=== PATIENT | female | born 1960 | race Caucasian/White ===

== ENCOUNTER → 2018-07-27 11:58 | Outpatient (CLI) | payer BC, SELFPAY ==
[2018-07-27 12:52] VITALS: PULSE 100; PULSE 109; PULSE 110; PULSE 112; PULSE 87; PULSE 92; PULSE 94; PULSE 96; O2SAT 84; O2SAT 87; O2SAT 88; O2SAT 89; O2SAT 91; O2SAT 92; O2SAT 93
--- NOTE | 2018-07-27 12:55 | CPS ---
Patient arrived on room air for testing. Upon being taken to exam room, spo2 was at 84% and patient had dusky lips and fingers. Oxygen was placed on patient at 2lpm with spo2 increasing to 92%. Walk testing began on 2lpm. Patient has f/u delio Grayson in office Thursday07/30/18
--- NOTE | 2018-07-29 14:59 | PCM.PSN.6M ---
PSN 6 Minute Walk Test - 6 Minute Walk Test 6 Minute Walk Test: 6 Minute Walk Test PSN:6-Minute Walk Test Start: 07/27/18 12:51 Freq: Status: Active Protocol: RESP.6MINW Document 07/27/18 12:52 [facility] (Rec: 07/27/18 12:58 [facility] [id number]) 6 Minute Walk Test Date Performed 07/27/18 Time Performed 12:00 Height 5 ft 4 in Weight: 240 lb Weight in Pounds 240.[address]: Alejandrina Augustine Assistive device used: None Pre-test Oxygen Delivery Method Room Air Pulse Ox (%) 84 Pulse Rate (60-100 beats/min) 92 Dyspnea Nickolas Scale (0-10) 3 Reported Symptoms Cyanotic Increased Work of Breathing 1st minute Oxygen Flow Rate (L/min) (L/min) 2 Oxygen Delivery Method Nasal Cannula Pulse Ox (%) 89 Pulse Rate (60-100 beats/min) 94 Dyspnea Nickolas Scale (0-10) 4 Reported Symptoms Increased Work of Breathing 2nd minute Oxygen Flow Rate (L/min) (L/min) 2 Oxygen Delivery Method Nasal Cannula Pulse Ox (%) 88 Pulse Rate (60-100 beats/min) 96 Dyspnea Nickolas Scale (0-10) 5 Number of Rests Taken 1 Reported Symptoms Increased Work of Breathing 3rd minute Oxygen Flow Rate (L/min) (L/min) 3 Oxygen Delivery Method Nasal Cannula Pulse Ox (%) 87 Pulse Rate (60-100 beats/min) 100 Dyspnea Nickolas Scale (0-10) 5 Number of Rests Taken 1 Reported Symptoms Increased Work of Breathing 4th minute Oxygen Flow Rate (L/min) (L/min) 4 Oxygen Delivery Method Nasal Cannula Pulse Ox (%) 91 Pulse Rate (60-100 beats/min) 109 H Dyspnea Nickolas Scale (0-10) 6 Number of Rests Taken 1 Reported Symptoms Increased Work of Breathing 5th minute Oxygen Flow Rate (L/min) (L/min) 4 Oxygen Delivery Method Nasal Cannula Pulse Ox (%) 92 Pulse Rate (60-100 beats/min) 110 H Dyspnea Nickolas Scale (0-10) 6 Number of Rests Taken 1 Reported Symptoms Increased Work of Breathing 6th minute Oxygen Flow Rate (L/min) (L/min) 4 Oxygen Delivery Method Nasal Cannula Pulse Ox (%) 93 Pulse Rate (60-100 beats/min) 112 H Dyspnea Nickolas Scale (0-10) 6 Number of Rests Taken 1 Reported Symptoms Increased Work of Breathing Post-test Oxygen Flow Rate (L/min) (L/min) 2 Oxygen Delivery Method Nasal Cannula Pulse Ox (%) 91 Pulse Rate (60-100 beats/min) 87 Dyspnea Nickolas Scale (0-10) 3 Reported Symptoms Increased Work of Breathing Full Laps Walked 6 Partial Lap, Number of Tiles Walked 10 Total Distance Walked (ft) 364 07/27/18 12:55 Cardiopulmonary Services by Sherrie Smith Patient arrived on room air for testing. Upon being taken to exam room, spo2 was at 84% and patient had dusky lips and fingers. Oxygen was placed on patient at 2lpm with spo2 increasing to 92%. Walk testing began on 2lpm. Patient has f/u w Renuka in office Thursday07/30/18 Initialized on 07/27/18 12:55 - END OF NOTE - Interpretation Interpretation: The patient ambulated 364 feet over the course of 6 minutes beginning on room air without assistive devices or breaks. Pretesting oxygen saturation was noted to be 84% on room air. 2 L/min of oxygen was applied and the walk test proceeded. Unfortunately, the patient continued to desaturate on multiple occasions requiring an escalation in her supplemental flow rate to 4 L/min in order to maintain oxygen saturations at or above 88%. This testing indicates the presence of impaired walk distance and significant exertional oxygen desaturation. - Recommendations Recommendations: 2 L/min of supplemental oxygen should be utilized at rest and 4 L/min should be utilized with exertion.
--- OUTSIDE RECORDS SUMMARY | 2018-10-28 21:30 | XMS RPT_ITS | Clinical Summary ---
:1960 Author Organization [facility] Address [address] [place] [id number] Phone Care Team Providers Name Role Phone Kadie Benavides Unavailable Unavailable Conditions or Problems Problem Name Problem Onset Status Entry Provider Comment Standard Annotate Code Date Date Description Joint pain 32302469 Active Machelle Joint pain (SNOMED 12/04 12/[address] [place] [address]) PA-C Insomnia, 541766672 Active Machelle Insomnia chronic (SNOMED 12/04 12/[address] [place] [address]) PA-C Overactive 127455196 Active Machelle Bladder muscle bladder (SNOMED 12/04 12/04 D [place] dysfunction - CT) PA-C overactive Hiatal hernia 61780827 Active Machelle Hiatal hernia (SNOMED 12/04 12/[address] [place] [address]) PA-C GERD 235311305 Active Machelle Gastroesophageal (SNOMED 12/04 12/[address] [place] [address]) PA-C Hypertension 6760128 2982/0 Active Machelle Benign essential benign (SNOMED 12/04 12/[address] [place] [address]) PA-C Depression / 074615151 Active Machelle Mixed anxiety and anxiety (SNOMED 12/04 12/[address] [place] [address]) PA-C disorder Medications Medication Instructions Start Stop Generic Name UTC Provider Date Date CLONAZEPAM 2 MG TABS 1 tablet by CLONAZEPAM [id number] Machelle mouth at 12/04 D [place] bedtime PA-C HYDROCHLOROTHIAZIDE 1 tablet by HYDROCHLOROTHIAZIDE 40907430396 Machelle 50 MG TABS mouth daily 12/04 D [place] PA-C SOTALOL HCL 120 MG 1 tablet by SOTALOL HCL 42179645874 Machelle TABS mouth daily 12/04 D [place] PA-C ESCITALOPRAM OXALATE 1 tablet by ESCITALOPRAM OXALATE 70440110286 Machelle 20 MG TABS mouth daily 12/04 D [place] at bedtime PA-C ALPRAZOLAM 1 MG TABS 1 tablet as ALPRAZOLAM 58704814791 Machelle needed for 12/04 D [place] anxiety PA-C PANTOPRAZOLE SODIUM 2 tablets by PANTOPRAZOLE SODIUM 94973248965 Machelle 40 MG TBEC mouth daily 12/04 D [place] PA-C OXYBUTYNIN CHLORIDE 1 tablet by OXYBUTYNIN CHLORIDE 73942125573 Machelle ER 10 MG [id number] mouth daily 12/04 D [place] PA-C POTASSIUM CHLORIDE 2 tablets by POTASSIUM CHLORIDE 04566164012 Machelle ER 20 MEQ CR-TABS mouth daily 12/04 D [place] PA-C Medications Administered No information available. Allergies, Adverse Reactions, Alerts Observed no known allergies at Results Date Name Value Unit Range Flag Description Office Visit: Establish Care MEDS REVIEW Done Documentation of current medications (procedure) SMOK ADVICE yes Smoking cessation education (procedure) ORALTOBACUSE Never Tobacco smoking status NJIS SMOK STATUS Current every day smoker Tobacco use [facility] Plan of Care Type Date Detail Appointment 10:00 AM Jonathan Cummings, [address], [address], [place], [address] Referral Surgery Referral Pending order *CRP - C-Reative Protein Pending order *PAT Pending order *Sedimentation Rate (ESR) Pending order *RA Rheumatoid Factor - Quaint Procedures No information available. Vital Signs Date Name Value Unit Description BMI (Body Mass Index) 31.09 kg/m2 Body Mass Index [Ratio] Body Temperature 99.0 [degF] temperature E&M BP Diastolic 90 mm[Hg] blood pressure, diastolic - 8462-4 BP Systolic 132 mm[Hg] blood pressure, systolic - 8480-6 BSA (Body Surface Area) 1.90 body surface area Heart Rate 88 /min pulse rate E&M - 8867-4 Height 64.5 [in_us] height E&M - 8302-2 Respiratory Rate 18 /min respiratory rate E&M - 9279-1 Weight Measured 184 [lb_av] weight E&M - 3141-9
--- OUTSIDE RECORDS SUMMARY | 2018-10-28 21:30 | XMS RPT_ITS | Clinical Summary ---
:1960 Author Organization [facility] Address [address] [place] [phone] Phone Care Team Providers Name Role Phone Kadie Benavides Unavailable Unavailable Conditions or Problems Problem Name Problem Onset Status Entry Provider Comment Standard Annotate Code Date Date Description Joint pain 36161843 Active Machelle Joint pain (SNOMED 12/04 12/[address] [place] [address]) PA-C Insomnia, 691329352 Active Machelle Insomnia chronic (SNOMED 12/04 12/[address] [place] [address]) PA-C Overactive 963619414 Active Machelle Bladder muscle bladder (SNOMED 12/04 12/04 D [place] dysfunction - CT) PA-C overactive Hiatal hernia 31878937 Active Machelle Hiatal hernia (SNOMED 12/04 12/[address] [place] [address]) PA-C GERD 571756842 Active Machelle Gastroesophageal (SNOMED 12/04 12/[address] [place] [address]) PA-C Hypertension 7957664 5084/0 Active Machelle Benign essential benign (SNOMED 12/04 12/[address] [place] [address]) PA-C Depression / 884489659 Active Machelle Mixed anxiety and anxiety (SNOMED 12/04 12/[address] [place] [address]) PA-C disorder Medications Medication Instructions Start Stop Generic Name NDC Provider Date Date CLONAZEPAM 2 MG TABS 1 tablet by CLONAZEPAM [id number] Machelle mouth at 12/04 D [place] bedtime PA-C CLONAZEPAM 2 MG TABS 1 tablet by 2017/ CLONAZEPAM 94678685500 Kadie L mouth at 12/04 07/05 [place] bedtime OXYBUTYNIN CHLORIDE 1 tablet by OXYBUTYNIN CHLORIDE 29119365503 Machelle ER 10 MG [id number] mouth daily 12/04 D [place] SIN-aSndy OXYBUTYNIN CHLORIDE 1 tablet by 2016/ OXYBUTYNIN CHLORIDE 95204040631 Kadie L ER 10 MG [id number] mouth daily 12/04 02/11 [place] PANTOPRAZOLE SODIUM 2 tablets by PANTOPRAZOLE SODIUM 07452740713 Machelle 40 MG TBEC mouth daily 12/04 [place] JANUARY-C PANTOPRAZOLE SODIUM 2 tablets by 2016/ PANTOPRAZOLE SODIUM 69706519192 Kadie L 40 MG TBEC mouth daily 12/04 02/11 [place] POTASSIUM CHLORIDE 2 tablets by POTASSIUM CHLORIDE 94019374459 Machelle ER 20 MEQ CR-TABS mouth daily 12/04 [place] SIN-C HYDROCHLOROTHIAZIDE 1 tablet by HYDROCHLOROTHIAZIDE 32265434080 Machelle 50 MG TABS mouth daily 12/04 [place] ALPRAZOLAM 1 MG TABS One tab three ALPRAZOLAM 95114357329 Kadie L times daily 12/16 [place] as needed ESCITALOPRAM OXALATE 1 tablet by ESCITALOPRAM OXALATE 06605030014 Kadie L 20 MG TABS mouth daily 05/01 [place] VALIUM 2 MG TABS One tab DIAZEPAM 01616153749 Kadie Sanchez minutes prior 02/11 [place] to MRI MEDROL 4 MG TABS One tab 6 METHYLPREDNISOLONE 05288591252 Kadie L days 02/06 [place] TRIAMCINOLONE One TRIAMCINOLONE 34922893547 Kadie Sanchez ACETONIDE 0.025 % application 02/06 ACETONIDE [place] CREA four times daily ASPIRIN 81 MG TBEC One tab daily ASPIRIN 64780218025 Kadie L 02/06 [place] PERCOCET 5-325 MG One tab every OXYCODONE-ACETAMINOP 80042994550 Kadie L TABS 6 hrs as 01/30 [facility] [place] needed ROSUVASTATIN CALCIUM 1.5 tabs ROSUVASTATIN CALCIUM 38375704307 Kadie L 5 MG TABS daily 02/03 [place] ULTRAM 50 MG TABS One tab every TRAMADOL HCL 52926981351 Kadie L 4-6 hrs as 10/02 [place] needed HYDROCHLOROTHIAZIDE One tab daily HYDROCHLOROTHIAZIDE 06990928247 Kadie L 50 MG TABS 08/17 ALPRAZOLAM 1 MG TABS 1 tablet as ALPRAZOLAM 47670398812 Machelle needed for 12/04 D [place] anxiety PA-C ESCITALOPRAM OXALATE 1 tablet by ESCITALOPRAM OXALATE 26492035622 Machelle 20 MG TABS mouth daily 12/04 D [place] at bedtime PA-C SOTALOL HCL 120 MG 1 tablet by SOTALOL HCL 51087808862 Machelle TABS mouth daily 12/04 D [place] PA-C SOTALOL HCL 120 MG 1 tablet by SOTALOL HCL 29582450690 Kadie L TABS mouth daily 12/04 02/11 [place] Medications Administered No information available. Allergies, Adverse Reactions, Alerts Observed no known allergies at Results Date Name Value Unit Range Flag Description Office Visit: Establish Care MEDS REVIEW Done Documentation of current medications (procedure) SMOK ADVICE yes Smoking cessation education (procedure) ORALTOBACUSE Never Tobacco smoking status NHIS SMOK STATUS Current every day smoker Tobacco use [facility] Plan of Care Type Date Detail Appointment 10:00 AM Jonathan Cummings, [address], [address], [place], [address] Referral Surgery Referral Pending order *CRP - [...]
--- OUTSIDE RECORDS SUMMARY | 2018-10-28 21:30 | XMS RPT_ITS | Clinical Summary ---
:[address] [facility], [facility] Address [address] [place] [address] Phone Care Team Providers Name Role Phone Kadie Noguera LPN Unavailable Unavailable Conditions or Problems Problem Name Problem Onset Status Entry Provider Comment Standard Annotate Code Date Date Description Tobacco Abuse 80938561 Active Jonathan W Tobacco (SNOMED 03/13 03/[address]) syndrome Dyspnea/short 322931415 Active Jonathan W Dyspnea ness of (SNOMED 03/13 03/[address]) Hypoxemia 201947841 Active Jonathan W Hypoxemia (SNOMED 03/13 03/[address]) Joint pain 19462991 Active Machelle Joint pain (SNOMED 12/04 12/[address] [place] [address]) PA-C Insomnia, 918443234 Active Machelle Insomnia chronic (SNOMED 12/04 12/[address] [place] [address]) PA-C Overactive 941911251 Active Machelle Bladder muscle bladder (SNOMED 12/04 12/04 D [place] dysfunction - CT) PA-C overactive Hiatal hernia 24541635 Active Machelle Hiatal hernia (SNOMED 12/04 12/[address] [place] [address]) PA-C GERD 484549942 Active Machelle Gastroesophageal (SNOMED 12/04 12/04 D [place] reflux disease CT) PA-C Hypertension 8383186 7825/0 Active Machelle Benign essential benign (SNOMED 12/04 12/04 D [place] hypertension essential CT) PA-C Depression / 009890493 Active Machelle Mixed anxiety and anxiety (SNOMED 12/04 12/[address] [place] depressive CT) PA-C disorder Medications Medication Instructions Start Stop Generic Name ND Provider Date Date CLONAZEPAM 2 MG TABS 1 tablet by CLONAZEPAM [id number] Machelle mouth at 12/04 D [place] bedtime PA-C CLONAZEPAM 2 MG TABS 1 tablet by 2016/ CLONAZEPAM 22585168200 Kadie L mouth at 12/04 02/11 [place] bedtime OXYBUTYNIN CHLORIDE 1 tablet by OXYBUTYNIN CHLORIDE 25243831199 Machelle ER 10 MG [id number] mouth daily 12/04 D [place] PA-C OXYBUTYNIN CHLORIDE 1 tablet by 2016/ OXYBUTYNIN CHLORIDE 80685825303 Kadie L ER 10 MG [id number] mouth daily 12/04 02/11 [place] PANTOPRAZOLE SODIUM 2 tablets by PANTOPRAZOLE SODIUM 49321999420 Machelle 40 MG TBEC mouth daily 12/04 [place] PA-C PANTOPRAZOLE SODIUM 2 tablets by 2016/ PANTOPRAZOLE SODIUM 14633447082 Kadie L 40 MG TBEC mouth daily 12/04 02/11 [place] ULTRAM 50 MG TABS One tab every TRAMADOL HCL 66912079905 Kadie L 4-6 hrs as 10/02 [place] needed ULTRAM 50 MG TABS One tab every 2016/ TRAMADOL HCL 57522409015 Marianela M 4-6 hrs as 10/02 03/13 [place] needed POTASSIUM CHLORIDE 2 tablets by POTASSIUM CHLORIDE 82201904696 Machelle ER 20 MEQ CR-TABS mouth daily 12/04 D [place] PA-C HYDROCHLOROTHIAZIDE 1 tablet by HYDROCHLOROTHIAZIDE 64476762875 Machelle 50 MG TABS mouth daily 12/04 D [place] PA-C ALPRAZOLAM 1 MG TABS One tab three ALPRAZOLAM 35508100560 Kadie L times daily 12/16 [place] as needed ESCITALOPRAM OXALATE 1 tablet by ESCITALOPRAM OXALATE 22419852896 Kadie L 20 MG TABS mouth daily 05/01 [place] VALIUM 2 MG TABS One tab 30 DIAZEPAM 44284048744 Kadie L minutes prior 02/11 [place] to [place] MEDROL 4 MG TABS One tab 6 METHYLPREDNISOLONE 43891085657 Kadie L days 02/06 [place] TRIAMCINOLONE One TRIAMCINOLONE 35761511965 Kadie Sanchez ACETONIDE 0.025 % application 02/06 ACETONIDE [place] CREA four times daily ASPIRIN 81 MG TBEC One tab daily ASPIRIN 44810992580 Kadie L 02/06 [place] PERCOCET 5-325 MG One tab every OXYCODONE-ACETAMINOP 45924533515 Kadie L TABS 6 hrs as 01/30 JOSE ALBERTO Benavides needed ROSUVASTATIN CALCIUM 1.5 tabs ROSUVASTATIN CALCIUM 55537160691 Kadie L 5 MG TABS daily 02/03 HYDROCHLOROTHIAZIDE One tab daily HYDROCHLOROTHIAZIDE 48786398953 Kadie L 50 MG TABS 08/17 [place] ALPRAZOLAM 1 MG TABS 1 tablet as ALPRAZOLAM 47319355423 Machelle needed for 12/04 D [place] anxiety PA-C ESCITALOPRAM OXALATE 1 tablet by ESCITALOPRAM OXALATE 87150473107 Machelle 20 MG TABS mouth daily 12/04 D [place] at bedtime PA-C SOTALOL HCL 120 MG 1 tablet by SOTALOL HCL 59273508959 Machelle TABS mouth daily 12/04 D [place] PA-C SOTALOL HCL 120 MG 1 tablet by SOTALOL HCL 77751151911 Kadie L TABS mouth daily 12/04 02/11 [place] Medications Administered No information available. Allergies, Adverse Reactions, Alerts Observed no known allergies at Results Date Name Value Unit Range Flag Description Office Visit: Establish Care MEDS REVIEW Done Documentation of current medications (procedure) SMOK ADVICE yes Smoking cessation education (procedure) ORALTOBACUSE Never Tobacco smoking status NHIS SMOK STATUS Current every day smoker Tobacco use [facility] Plan of Care Type Date Detail Appointment 10:30 AM Dakota Santos, [address], [place], [address] Appointment 10:30 AM Dakota Santos, [address], [place], [address] Referral Surgery Referral Pending order Nocturnal Oximetry Pending order Pulmonary Function Test - complete Pending order Pulmonary stress testing; simple (eg, 6-minute walk) Pending order Follow Up Appt 3 months Pending order *CRP - C-Reative Protein Pending [...]
--- OUTSIDE RECORDS SUMMARY | 2018-10-28 21:30 | XMS RPT_ITS | Clinical Summary ---
:1960 Author Organization [facility], [facility] Address [facility] [place] [address] Phone Care Team Providers Name Role Phone Marianela Amaro Unavailable Unavailable Conditions or Problems Problem Name Problem Onset Status Entry Provider Comment Standard Annotate Code Date Date Description Tobacco Abuse 18826332 Active Jonathan W Tobacco (SNOMED 03/13 03/[address]) syndrome Dyspnea/short 314584807 Active Jonathan W Dyspnea ness of (SNOMED 03/13 03/[address]) Hypoxemia 009613075 Active Jonathan W Hypoxemia (SNOMED 03/13 03/[address]) Joint pain 45233681 Active Machelle Joint pain (SNOMED 12/04 12/[address] [place] [address]) PA-C Insomnia, 338822749 Active Machelle Insomnia chronic (SNOMED 12/04 12/[address] [place] [address]) PA-C Overactive 018397101 Active Machelle Bladder muscle bladder (SNOMED 12/04 12/04 [place] dysfunction - CT) PA-C overactive Hiatal hernia 15122747 Active Machelle Hiatal hernia (SNOMED 12/04 12/[address] [place] [address]) PA-C GERD 735541103 Active Machelle Gastroesophageal (SNOMED 12/04 12/[address] [place] reflux disease CT) PA-C Hypertension 6674117 5099/0 Active Machelle Benign essential benign (SNOMED 12/04 12/04 [place] hypertension essential CT) PA-C Depression / 189909942 Active Machelle Mixed anxiety and anxiety (SNOMED 12/04 12/[address] [place] [address]) PA-C disorder Medications Medication Instructions Start Stop Generic Name NDC Provider Date Date CLONAZEPAM 2 MG TABS 1 tablet by CLONAZEPAM [id number] Machelle mouth at 12/04 D [place] bedtime PA-C CLONAZEPAM 2 MG TABS 1 tablet by 2016/ CLONAZEPAM [id number] Kadie L mouth at 12/04 02/11 [facility] bedtime OXYBUTYNIN CHLORIDE 1 tablet by OXYBUTYNIN CHLORIDE 58844009416 Machelle ER 10 MG [id number] mouth daily 12/04 [place] PA-C OXYBUTYNIN CHLORIDE 1 tablet by 2016/ OXYBUTYNIN CHLORIDE 84541863864 Kadie L ER 10 MG [id number] mouth daily 12/04 02/11 [place] PANTOPRAZOLE SODIUM 2 tablets by PANTOPRAZOLE SODIUM 40692125476 Machelle 40 MG TBEC mouth daily 12/04 D [place] PA-C PANTOPRAZOLE SODIUM 2 tablets by 2016/ PANTOPRAZOLE SODIUM 72165829745 Kadie L 40 MG TBEC mouth daily 12/04 02/11 [place] ULTRAM 50 MG TABS One tab every TRAMADOL HCL 67553275434 Kadie L 4-6 hrs as 10/02 [place] needed ULTRAM 50 MG TABS One tab every 2016/ TRAMADOL HCL 64469269208 Marianela M 4-6 hrs as 10/02 03/13 [facility] needed POTASSIUM CHLORIDE 2 tablets by POTASSIUM CHLORIDE 38608101444 Machelle ER 20 MEQ CR-TABS mouth daily 12/04 [place] PA-C HYDROCHLOROTHIAZIDE 1 tablet by HYDROCHLOROTHIAZIDE 33939011587 Machelle 50 MG TABS mouth daily 12/04 [place] PA-C ALPRAZOLAM 1 MG TABS One tab three ALPRAZOLAM 20434510423 Kadie L times daily 12/16 [place] as needed ESCITALOPRAM OXALATE 1 tablet by ESCITALOPRAM OXALATE 19535115221 Kadie L 20 MG TABS mouth daily 05/01 [place] VALIUM 2 MG TABS One tab 30 DIAZEPAM 29619715257 Kadie L minutes prior 02/11 [place] to [facility] MEDROL 4 MG TABS One tab 6 METHYLPREDNISOLONE 49767120595 Kadie L days 02/06 [place] TRIAMCINOLONE One TRIAMCINOLONE 60070264555 Kadie Sanchez ACETONIDE 0.025 % application 02/06 ACETONIDE [place] CREA four times daily ASPIRIN 81 MG TBEC One tab daily ASPIRIN 88141607672 Kadie L 02/06 [place] PERCOCET 5-325 MG One tab every OXYCODONE-ACETAMINOP 48689512032 Kadie L TABS 6 hrs as 01/30 JOSE ALBERTO Benavides needed ROSUVASTATIN CALCIUM 1.5 tabs ROSUVASTATIN CALCIUM 26166028531 Kadie L 5 MG TABS daily 02/03 [place] HYDROCHLOROTHIAZIDE One tab daily HYDROCHLOROTHIAZIDE 37875038202 Kadie L 50 MG TABS 08/17 [place] ALPRAZOLAM 1 MG TABS 1 tablet as ALPRAZOLAM 06417470820 Machelle needed for 12/04 D [place] anxiety PA-C ESCITALOPRAM OXALATE 1 tablet by ESCITALOPRAM OXALATE 27395802885 Machelle 20 MG TABS mouth daily 12/04 D [place] at bedtime PA-C SOTALOL HCL 120 MG 1 tablet by SOTALOL HCL 55230942469 Machelle TABS mouth daily 12/04 [place] PA-C SOTALOL HCL 120 MG 1 tablet by SOTALOL HCL 15715853423 Kadie L TABS mouth daily 12/04 02/11 [facility] Medications Administered No information available. Allergies, Adverse Reactions, Alerts Observed no known allergies at Results Date Name Value Unit Range Flag Description Office Visit: New patient/Hypoxemia MEDS REVIEW Done Documentation of current medications (procedure) SMOK ADVICE yes Smoking cessation education (procedure) ORALTOBACUSE Never Tobacco smoking status NHIS SMOK STATUS Current every day smoker Tobacco use [facility] Plan of Care Type Date Detail Appointment 10:30 AM Dakota [address], [place], [address] Appointment 10:30 AM Dakota Santos [address], [place], [address] Referral Surgery Referral Pending order Nocturnal Oximetry [...] Value Unit Description BMI (Body Mass Index) 31.77 kg/m2 Body Mass Index [Ratio] Body Temperature 97.4 [degF] temperature E&M BP Diastolic 76 mm[Hg] blood pressure, diastolic - 8462-4 BP Systolic 130 mm[Hg] blood pressure, systolic - 8480-6 Heart Rate 78 /min pulse rate E&M - 8867-4 Height 64.5 [in_us] height E&M - 8302-2 Respiratory Rate 20 /min respiratory rate E&M - 9279-1 Weight Measured 188 [lb_av] weight E&M - 3141-9 BSA (Body Surface Area) 1.90 body surface area
--- OUTSIDE RECORDS SUMMARY | 2018-10-28 21:30 | XMS RPT_ITS | Clinical Summary ---
:1960 Author Organization [facility], [facility] Address [address] [place] [address] Phone Care Team Providers Name Role Phone Kadie Noguera LPN Unavailable Unavailable Conditions or Problems Problem Name Problem Onset Status Entry Provider Comment Standard Annotate Code Date Date Description Tobacco Abuse 98353399 Active Jonathan W Tobacco (SNOMED 03/13 03/[address]) syndrome Dyspnea/short 785954736 Active Jonathan W Dyspnea ness of (SNOMED 03/13 03/[address]) Hypoxemia 339332757 Active Jonathan W Hypoxemia (SNOMED 03/13 03/[address]) Joint pain 06968205 Active Machelle Joint pain (SNOMED 12/04 12/[address] [place] [address]) PA-C Insomnia, 085258423 Active Machelle Insomnia chronic (SNOMED 12/04 12/[address] [place] [address]) PA-C Overactive 312567997 Active Machelle Bladder muscle bladder (SNOMED 12/04 12/04 D [place] dysfunction - CT) PA-C overactive Hiatal hernia 82774049 Active Machelle Hiatal hernia (SNOMED 12/04 12/[address] [place] [address]) PA-C GERD 975470379 Active Machelle Gastroesophageal (SNOMED 12/04 12/04 D [place] reflux disease CT) PA-C Hypertension 2390479 6118/0 Active Machelle Benign essential benign (SNOMED 12/04 12/04 D [place] hypertension essential CT) PA-C Depression / 243329758 Active Machelle Mixed anxiety and anxiety (SNOMED 12/04 12/[address] [place] [address]) PA-C disorder Medications Medication Instructions Start Stop Generic Name ND Provider Date Date CLONAZEPAM 2 MG TABS 1 tablet by CLONAZEPAM [id number] Machelle mouth at 12/04 D [place] bedtime PA-C CLONAZEPAM 2 MG TABS 1 tablet by 2016/ CLONAZEPAM 76151830263 Kadie L mouth at 12/04 02/11 [facility] [place] [facility] bedtime OXYBUTYNIN CHLORIDE 1 tablet by OXYBUTYNIN CHLORIDE 66009562890 Machelle ER 10 MG [id number] mouth daily 12/04 D [place] PA-C OXYBUTYNIN CHLORIDE 1 tablet by 2016/ OXYBUTYNIN CHLORIDE 03319258658 Kadie L ER 10 MG [id number] mouth daily 12/04 02/11 [place] PANTOPRAZOLE SODIUM 2 tablets by PANTOPRAZOLE SODIUM 53760198176 Machelle 40 MG TBEC mouth daily 12/04 [place] PA-C PANTOPRAZOLE SODIUM 2 tablets by 2016/ PANTOPRAZOLE SODIUM 27480463939 Kadie L 40 MG TBEC mouth daily 12/04 02/11 [place] ULTRAM 50 MG TABS One tab every TRAMADOL HCL 42181006353 Kadie L 4-6 hrs as 10/02 [place] needed ULTRAM 50 MG TABS One tab every 2016/ TRAMADOL HCL 93362466464 Marianela M 4-6 hrs as 10/02 03/13 [facility] needed POTASSIUM CHLORIDE 2 tablets by POTASSIUM CHLORIDE 74370167404 Machelle ER 20 MEQ CR-TABS mouth daily 12/04 D [place] PA-C HYDROCHLOROTHIAZIDE 1 tablet by HYDROCHLOROTHIAZIDE 26933691673 Machelle 50 MG TABS mouth daily 12/04 D [place] PA-C ALPRAZOLAM 1 MG TABS One tab three ALPRAZOLAM 06152674458 Kadie L times daily 12/16 [place] as needed ESCITALOPRAM OXALATE 1 tablet by ESCITALOPRAM OXALATE 13774086453 Kadie L 20 MG TABS mouth daily 05/01 [place] VALIUM 2 MG TABS One tab 30 DIAZEPAM 65030724206 Kadie L minutes prior 02/11 [place] MEDROL 4 MG TABS One tab 6 METHYLPREDNISOLONE 11491717168 Kadie L days 02/06 [place] TRIAMCINOLONE One TRIAMCINOLONE 48383440699 Kadie L ACETONIDE 0.025 % application 02/06 ACETONIDE [place] CREA four times daily ASPIRIN 81 MG TBEC One tab daily ASPIRIN 08079174508 Kadie L 02/06 [place] PERCOCET 5-325 MG One tab every OXYCODONE-ACETAMINOP 65417956910 Kadie L TABS 6 hrs as 01/30 JOSE ALBERTO Ben[place]ides needed ROSUVASTATIN CALCIUM 1.5 tabs ROSUVASTATIN CALCIUM 91429954484 Kadie L 5 MG TABS daily 02/03 [place] HYDROCHLOROTHIAZIDE One tab daily HYDROCHLOROTHIAZIDE 58745893628 Kadie L 50 MG TABS 08/17 [place] ALPRAZOLAM 1 MG TABS 1 tablet as ALPRAZOLAM 47711105585 Machelle needed for 12/04 D [place] anxiety PA-C ESCITALOPRAM OXALATE 1 tablet by ESCITALOPRAM OXALATE 28903459831 Machelle 20 MG TABS mouth daily 12/04 D [place] at bedtime PA-C SOTALOL HCL 120 MG 1 tablet by SOTALOL HCL 58858365827 Machelle TABS mouth daily 12/04 D [place] PA-C SOTALOL HCL 120 MG 1 tablet by SOTALOL HCL 08209232791 Kadie L TABS mouth daily 12/04 02/11 [facility] Medications Administered No information available. Allergies, Adverse Reactions, Alerts Observed no known allergies at Results Date Name Value Unit Range Flag Description Office Visit: New patient/Hypoxemia MEDS REVIEW Done Documentation of current medications (procedure) SMOK ADVICE yes Smoking cessation education (procedure) ORALTOBACUSE Never Tobacco smoking status NHIS SMOK STATUS Current every day smoker Tobacco use [facility] Plan of Care Type Date Detail Appointment 10:30 AM Dakota Santos, [address], [place], [address] Appointment 10:30 AM Dakota Santos, [address], [place], [address] Referral Surgery Referral Pending order Nocturnal Oximetry [...]
--- OUTSIDE RECORDS SUMMARY | 2018-10-28 21:31 | XMS RPT_ITS ---
:1960 Author Organization OHIP Support Name Relationship Address Phone NOT GIVEN Unavailable Unavailable Unavailable EDD JAMISON Unavailable [address] + [place] [address] UE Unavailable Unavailable Unavailable MARICRUZ JAMISON Unavailable [address] + [place], [place] [phone] MARICRUZ JAMISON Unavailable [address] Unavailable [place], [place] [phone] NOT GIVEN Unavailable Unavailable Unavailable MARICRUZ JAMISON Unavailable [address] + [place], [place] [phone] MARICRUZ JAMISON Unavailable [address] Unavailable [place], [place] [phone] NOT GIVEN Unavailable Unavailable Unavailable EDD JAMISON Unavailable [address] + [place] [address] UE Unavailable Unavailable Unavailable MARICRUZ JAMISON Unavailable [address] + [place], [place] [phone] MARICRUZ JAMISON Unavailable [address] Unavailable [place], [place] [phone] NOT GIVEN Unavailable Unavailable Unavailable EDD JAMISON Unavailable [address] + [place] [address] UE Unavailable Unavailable Unavailable EDD JAMISON Unavailable [address] + [place] [address] UE Unavailable Unavailable Unavailable MARICRUZ JAMISON Unavailable [address] + [place], [place] [phone] MARICRUZ JAMISON Unavailable [address] Unavailable [place] [phone] NOT GIVEN Unavailable Unavailable Unavailable EDD JAMISON Unavailable [address] + [place] [address] UE Unavailable Unavailable Unavailable MARICRUZ JAMISON Unavailable [address] + [place], [place] [phone] MARICRUZ JAMISON Unavailable [address] Unavailable [place], [place] [phone] NOT GIVEN Unavailable Unavailable Unavailable MARICRUZ JAMISON Unavailable [address] + [place], [place] [phone] MARICRUZ JAMISON Unavailable [address] Unavailable [place], [place] [phone] NOT GIVEN Unavailable Unavailable Unavailable MARICRUZ JAMISON Unavailable [address] + [place], [place] [phone] MARICRUZ JAMISON Unavailable [address] Unavailable [place], [place] [phone] NOT GIVEN Unavailable Unavailable Unavailable MARICRUZ JAMISON Unavailable [address] + [place], [place] [phone] MARICRUZ JAMISON Unavailable [address] Unavailable [place] [phone] NOT GIVEN Unavailable Unavailable Unavailable MARICRUZ JAMISON Unavailable [address] + [place], [place] [phone] MARICRUZ JAMISON Unavailable [address] Unavailable [place], [place] [phone] NOT GIVEN Unavailable Unavailable Unavailable MARICRUZ JAMISON Unavailable [address] + [place], [place] [phone] MARICRUZ JAMISON Unavailable [address] Unavailable [place], [place] [phone] NOT GIVEN Unavailable Unavailable Unavailable MARICRUZ JAMISON Unavailable [address] + [place], [place] [phone] MARICRUZ JAMISON Unavailable [address] Unavailable [place], [place] [phone] NOT GIVEN Unavailable Unavailable Unavailable MARICRUZ JAMISON Unavailable [address] + [place], [place] [phone] MARICRUZ JAMISON Unavailable [address] Unavailable [place], [place] [phone] NOT GIVEN Unavailable Unavailable Unavailable MARICRUZ JAMISON Unavailable [address] + [place], [place] [phone] MARICRUZ JAMISON Unavailable [address] Unavailable [place], [place] [phone] NOT GIVEN Unavailable Unavailable Unavailable Care Team Providers Name Role Phone LANG SALMERON Attending Unavailable LANG SALMERON Referring Unavailable LANG SALMERON Attending Unavailable WINTER PARK, JOJO Admitting Unavailable WINTER PARK, JOJO Attending Unavailable WINTER PARK, JOJO Consulting Unavailable WINTER PARK, [place] Primary Care Unavailable PROVIDER, UNKNOWN Consulting Unavailable WAKE Admitting Unavailable WAKE Attending Unavailable WINTER PARK, JOJO Consulting Unavailable [place] Primary Care Unavailable PROVIDER, UNKNOWN Consulting Unavailable AURORA, DR JACKSON Dillard Admitting Unavailable AURORA, DR JACKSON Dillard Attending Unavailable WINTER PARK, JOJO Consulting Unavailable AURORA, DR JACKSON Dillard Primary Care Unavailable PROVIDER, UNKNOWN Consulting Unavailable HILLS, JOJO Admitting Unavailable HILLS, JOJO Attending Unavailable WINTER PARK, JOJO Consulting Unavailable WINTER PARK, [place] Primary Care Unavailable PROVIDER, UNKNOWN Consulting Unavailable HABERBERGER OSCAR M Admitting Unavailable HABOSCAR CASTAÑEDA M Attending Unavailable WINTER PARK, JOJO Referring Unavailable HABERBERGER, OSCAR M Primary Care Unavailable WINTER PARK, JOJO Consulting Unavailable PROVIDER, UNKNOWN Consulting Unavailable HABERBERGER, OSCAR M Admitting Unavailable HABERBERGER OSCAR M Attending Unavailable HABERBERGER, OSCAR M Primary Care Unavailable WINTER PARK, JOJO Consulting Unavailable PROVIDER, UNKNOWN Consulting Unavailable AURORA, DR JACKSON Dillard Admitting Unavailable AURORA, DR JACKSON Dillard Attending Unavailable HILLS, JOJO Consulting Unavailable AURORA, DR JACKSON Dillard Primary Care Unavailable PROVIDER, UNKNOWN Consulting Unavailable WILLIAN SAMSON MD Admitting Unavailable WILLIAN SAMSON MD Attending Unavailable DENISE, JOJO Consulting Unavailable WILLIAN SAMSON MD Primary Care Unavailable PROVIDER, UNKNOWN Consulting Unavailable WILLIAN SAMSON MD Admitting Unavailable WILLIAN SAMSON MD Attending Unavailable DENISE, JOJO Consulting Unavailable WILLIAN SAMSON MD Primary Care Unavailable PROVIDER, UNKNOWN Consulting Unavailable WILLIAN SAMSON MD Admitting Unavailable WILLIAN SAMSON MD Attending Unavailable DENISE, JOJO Consulting Unavailable WILLIAN SAMSON MD Primary Care Unavailable PROVIDER, UNKNOWN Consulting Unavailable WILLIAN SAMSON MD Admitting Unavailable WILLIAN SAMSON MD Attending Unavailable WILLIAN SAMSON MD Consulting Unavailable WILLIAN SAMSON MD Primary Care Unavailable PROVIDER, UNKNOWN Consulting Unavailable PROVIDER, UNKNOWN Consulting Unavailable PROVIDER, UNKNOWN Consulting Unavailable LAWRENCE SALMERON DR Admitting Unavailable LAWRENCE SALMERON DR Attending Unavailable DENISE, JOJO Consulting Unavailable LAWRENCE SALMERON DR Primary Care Unavailable PROVIDER, UNKNOWN Consulting Unavailable WILLIAN SAMSON MD Admitting Unavailable WILLIAN SAMSON MD Attending Unavailable DENISE, JOJO Consulting Unavailable WILLIAN SAMSON MD Primary Care Unavailable PROVIDER, UNKNOWN Consulting Unavailable CYNDY, DR RAFITA Delgado Admitting Unavailable CYNDY, DR RAFITA Delgado Attending Unavailable HILLS, JOJO Referring Unavailable HILLS, JOJO Consulting Unavailable NAYLOR, DR RAFITA Delgado Primary Care Unavailable PROVIDER, UNKNOWN Consulting Unavailable Alphonso Ayon D.O. Attending Unavailable Fawn, Alejandrina Referring Unavailable Augustine, Alejandrina Attending Unavailable Fawn, Alejandrina Referring Unavailable Willian Samson Primary Care Unavailable Fawn, Alejandrina Attending Unavailable Willian Samson Referring Unavailable Augustine, Alejandrina Attending Unavailable Willian Samson Referring Unavailable Fawn, Alejandrina Attending Unavailable Fawn, Alejandrina Referring Unavailable Willian Samson Primary Care Unavailable PROBLEMS PROBLEMS DATE TYPE CONDITION / CODE ATTENDING STATUS SOURCE 09/01/2018 Secondary Hyperlipidemia, WILLIAN SAMSON Active Aniceto Pomerene Diagnosis unspecified / [facility] E785(ICD-10) Hospital Repository 09/01/2018 Principle Essential (primary) WILLIAN SAMSON Active Aniceto Pomerejanice Diagnosis hypertension / [facility] I10(ICD-10) Hospital Repository 09/01/2018 Secondary Hypothyroidism, WILLIAN SAMSON Active Aniceto Pomerejanice Diagnosis unspecified / [facility] E039(ICD-10) Hospital Repository 09/01/2018 Secondary Morbid (severe) WILLIAN SAMSON Active Aniceto Pomerejanice Diagnosis obesity due to [facility] excess calories / Hospital E6601(ICD-10) Repository 08/27/2018 Admitting Other ascites / WILLIAN SAMSON Active Aniceto Pomerene Diagnosis R188(ICD-10) [facility] Repository 08/27/2018 Principle Other ascites / WILLIAN SAMSON Active Aniceto Pomerene Diagnosis R188(ICD-10) [facility] Repository 08/27/2018 Secondary Fatty (change of) WILLIAN SAMSON Active Aniceto Pomerene Diagnosis liver, not [facility] classified / Repository K760(ICD-10) 08/26/2018 Secondary Essential (primary) LAWRENCE SALMERON DR Active Aniceto P[facility]rene Diagnosis hypertension / [facility] I10(ICD-10) Hospital Repository 08/26/[address] Active Aniceto Pomerene Diagnosis hypercholesterolemi [facility] a, unspecified / Hospital E7800(ICD-10) Repository 08/26/2018 Principle Pure LAWRENCE SALMERON DR Active Aniceto Pomerene Diagnosis hypercholesteroli [facility] a, unspecified / Hospital E7800(ICD-10) Repository 08/06/2018 Unknown G47.33 - Augustine, Active [place] Obstructive sleep [facility] apnea (adult) Hospital (pediatric) / Repository G47.33(ICD-10) 08/06/2018 Unknown J44.9 - Chronic Augustine, Active [facility] obstructive [facility] pulmonary disease, Hospital unspecified / Repository J44.9(ICD-10) 08/06/2018 Unknown F17.200 - Nicotine Augustine, Active [place] dependence, [facility] unspecuab [facility], Hospital uncomplicated / Repository F17.200(ICD-10) 07/30/2018 Admitting Chronic obstructive WILLIAN SAMSON Active Aniceto Pomjeronimo Diagnosis pulmonary disease, [facility] unspecified / Hospital J449(ICD-10) Repository 07/30/2018 Principle Chronic obstructive WILLIAN SAMSON Active Aniceto Pomerejanice Diagnosis pulmonary disease, [facility] unspecified / Hospital J449(ICD-10) Repository 07/30/2018 Secondary Rheumatic tricuspid WILLIAN SAMSON Active Aniceto Pomjeronimo Diagnosis insufficiency / [facility] I071(ICD-10) Hospital Repository 07/30/2018 Secondary Nicotine WILLIAN SAMSON Active Aniceto Pomjeronimo Diagnosis dependence, [facility] cigarettes, Hospital uncomplicated / Repository A19926(ICD-10) 08/12/2018 Unknown R06.02 - Shortness Alphonso Brown, Active [facility] of breath / [facility] R06.02(ICD-10) Hospital Repository 07/27/2018 Admitting Encounter for WILLIAN SAMSON Active Aniceto Pomerene Diagnosis general adult [facility] without abnormal Repository findings / Z0000(ICD-10) 07/27/2018 Principle Encounter for WILLIAN SAMSON Active Naiceto Pomerene Diagnosis general adult [facility] without abnormal Repository findings / Z0000(ICD-10) 07/23/2018 Principle Localized edema / WILLIAN SAMSON Active Aniceto Pomerene Diagnosis R600(ICD-10) [facility] Repository 07/22/2018 Admitting Pain in right leg / [facility]A, Active Aniceto Pomerene Diagnosis O59756(ICD-10) [facility] Repository 07/22/2018 Principle Pain in right leg / AURORA, DR Active Aniceto Pomerene Diagnosis W66573(ICD-10) [facility] Repository 07/22/2018 Secondary Low back pain / [facility]A, Active Aniceto Pomerene Diagnosis M545(ICD-10) [facility] Repository 06/28/2018 Secondary Other specified HABERBERGER, Active Aniceto Pomerene Diagnosis soft tissue [facility] M7989(ICD-10) Repository 06/27/2018 Admitting Other specified HABERBERGER, Active Aniceto Pomerene Diagnosis soft tissue [facility] M7989(ICD-10) Repository 06/27/2018 Principle Other specified HABERBERGER, Active Aniceto Pomerene Diagnosis soft tissue [facility] M7989(ICD-10) Repository 06/27/2018 Secondary Dorsalgia, HABERBERGER, Active Aniceto Pomerene Diagnosis unspecified / [facility] M549(ICD-10) Hospital Repository 06/27/2018 Secondary Chronic obstructive HABERBERGER, Active Aniceto Pomerene Diagnosis pulmonary disease, [facility] unspecified / Hospital J449(ICD-10) Repository 06/27/2018 Secondary Dependence on HABERBERGER, Active Aniceto Pomerene Diagnosis supplemental oxygen [facility] / Z9981(ICD-10) Hospital Repository 06/27/2018 Secondary Tobacco use / HABERBERGER, Active Aniceto Pomerene Diagnosis Z720(ICD-10) [facility] Repository 04/28/2018 Principle Hypokalemia / HILLS, JOJO Active Aniceto Pomerene Diagnosis E876(ICD-10) [facility] Repository 03/02/2018 Principle Edema, unspecified HILLS, JOJO Active Aniceto Pomerene Diagnosis / R609(ICD-10) [facility] Repository PROCEDURES PROCEDURES No Procedure Records FoundRESULTS RESULTS CBC Collected: 09/01/2018 Status: F Source: AN[facility]ETO POMER[facility] 10:52 AM [facility] REPOSITORY TYPE CODE TESTS RESULT OUT OF RANGE REFERENCE UNITS LAB CBC(LOINC) CBC Result Comment: CBC-COMPLETE BLOOD COUNT LAB WBC(LOINC) 4.5 - 10.8 x 10EE3/UL WBC 7.1 LAB RBC(LOINC) 4.10 - x 10EE6/UL 5.30 RBC High 5.89 LAB HEMOGLOBIN(LOINC 12.0 - g/dl ) 16.0 High HEMOGLOBIN 16.7 LAB HEMATOCRIT(LOINC 34.0 - % ) 46.0 High HEMATOCRIT 50.4 LAB MCV(LOINC) 80 - 99 fl MCV 86 LAB MCH(LOINC) 27 - 33 pg MCH 28 LAB MCHC(LOINC) 32 - 36 X10 3 MCHC 33 LAB RDW/CV(LOINC) 12.0 - % 15.6 RDW/CV High 15.9 LAB PLATELET(LOINC) 150 - 450 x10EE3/UL PLATELET 270 LAB MPV(LOINC) 6.6 - 10.5 fl MPV 8.0 Result Comment: AUTOMATED DIFFERENTIAL LAB NEUT %(LOINC) 46.0 - 76.0 % NEUT % 61.3 LAB LYMPH %(LOINC) 20.0 - 45.0 % LYMPH % 27.6 LAB MONOS %(LOINC) 0.0 - 10.0 % MONOS % 9.3 LAB EO %(LOINC) 0.0 - 7.0 % EO % 1.2 LAB BASO %(LOINC) 0.0 - 2.0 % BASO % 0.6 LAB Lymph #(LOINC) 0.80 - 2.80 x10EE3/U L Lymph # 2.00 LAB Neut #(LOINC) 1.50 - 7.10 x10EE3/U L Neut # 4.30 LAB [place] #(LOINC) 0.20 - 1.00 x10EE3/U L [place] # 0.70 LAB EO #(LOINC) 0.00 - 0.50 x10EE3/U L EO # 0.10 LAB Baso #(LOINC) 0.00 - 0.10 x10EE3/U L Baso # 0.00 LAB MANUAL DIFF(LOINC) MANUAL DIFF N/A LAB MORPHOLOGY(LOINC ) MORPHOLOGY N/A Result Comment: {CD] Performed By: #### [id number] #### [facility],[address] [place], [place] [id number] TSH Collected: 09/01/2018 Status: F Source: [facility] 10:52 AM [facility] REPOSITORY TYPE CODE TESTS RESULT OUT OF RANGE REFERENCE UNITS LAB TSH(INC) 0.34 - 5.60 uIU/ml TSH 1.30 Performed By: #### [id number] #### [facility],[address] [place] [address] CMP WITH EGFR Collected: 09/01/2018 Status: F Source: [facility] 10:52 AM [facility] REPOSITORY TYPE CODE TESTS RESULT OUT OF RANGE REFERENCE UNITS LAB CMP with eGFR(LOINC) CMP with eGFR Result Comment: COMPREHENSIVE METABOLIC PANEL LAB SODIUM(LOINC) 136 - 145 mmol/l SODIUM 138 LAB POTASSIUM(LOINC) 3.5 - 5.1 mmol/L POTASSIUM 4.7 LAB CHLORIDE(LOINC) 98 - 107 mmol/L CHLORIDE 102 LAB CO2(LOINC) 21.0 - mmol/L 31.0 CO2 Low 20.2 LAB GLUCOSE(LOINC) 74 - 106 mg/dl GLUCOSE High 122 LAB BUN(LOINC) 6 - 20 mg/dl BUN 10 LAB CREATININE(LOINC) 0.6 - 1.2 mg/dl CREATININE 0.8 LAB AST/SGOT(LOINC) 13 - 39 U/L AST/SGOT 28 LAB ALK PHOS(LOINC) 38 - 126 U/L ALK PHOS High 143 LAB CALCIUM(LOINC) 8.6 - mg/dl 10.2 CALCIUM 10.0 LAB TOTAL 6.4 - 8.3 g/dl PROTEIN(LOINC) TOTAL High PROTEIN 8.4 LAB ALBUMIN(LOINC) 3.4 - 4.8 g/dL ALBUMIN 4.4 LAB GLOBULIN(LOINC) 1.5 - 3.8 G/DL GLOBULIN High 4.0 LAB A/G RATIO(LOINC) 0.9 - 1.6 A/G RATIO 1.1 LAB TOTAL BILI(LOINC) 0.0 - 1.5 mg/dl TOTAL BILI 0.5 LAB B/C RATIO(LOINC) 0 - 30 ratio B/C RATIO 13 LAB ALT/SGPT(LOINC) 8 - 35 U/L ALT/SGPT 26 LAB ANION GAP(LOINC) 10 - 20 mmol/L ANION High GAP 21 LAB AGE(LOINC) years AGE 58 LAB eGFR(LOINC) 60 - 999 ML/MINUTE eGFR >60 LAB eGFR(AA)(LOINC) 60 - 999 ML/MINUTE eGFR(AA) >60 Result Comment: ACCORDING TO THE NATIONAL KIDNEY DISEASE EDUCATION PROGRAM(NKDE), A NORMAL eGFR IS A VALUE GREATER THAN OR EQUAL TO 60 ML/MIN/1.73 SQ METERS. CHRONIC KIDNEY DISEASE: <60mL/MIN/1.73 SQ METERS KIDNEY FAILURE: <15mL/MIN/1.73 SQ METERS THIS TEST SHOULD ONLY BE USED FOR PATIENTS 18 YEARS OF AGE AND OLDER. Performed By: #### [id number] #### [place] [address] MAGNESIUM Collected: 09/01/2018 Status: F Source: [facility] 10:52 [facility] TYPE CODE TESTS RESULT OUT OF REFERENCE UNITS RANGE LAB MAGNESIUM( 1.6 - 2.6 mg/dl LOINC) MAGNESIUM 2.2 Performed By: #### [id number] #### [place] [address] LIPID PROFILE Collected: 09/01/2018 Status: F Source: ANICETO RENE 10:52 [facility] TYPE CODE TESTS RESULT OUT OF REFERENCE UNITS RANGE LAB LIPID PROFILE(LOIN C) LIPID PROFILE Result Comment: LIPID PROFILE LAB TRIGLYCERIDE(LOINC) 0 - 150 mg/dl TRIGLYCERIDE 125 LAB CHOLESTEROL(LOINC) 0 - 200 mg/dl CHOLESTEROL High 251 LAB HDL(LOINC) 40 - 60 mg/dl HDL Low 39 LAB CHOL/HDL(LOINC) 0.0 - 5.0 CHOL/HDL High 6.4 LAB LDL(LOINC) 0 - 129 mg/dl LDL High 187 Performed By: #### [id number] #### [place] [id number] US ABD COMPLETE Observed: 08/27/2018 Status: F Source: ANICETO RENE 9:52 [place] [address] Patient: ELISA JAMISON Phone#: : 1960 Age: 58 Gender: F Pt. Type: Out Account: [id number] Location: 052 Ordering: WILLIAN SAMSON Exam Date: 08/27/2018/8:59 Family Phys: Charge Code: [id number] Physician: Gray Order #: [id number] DLP Dose#: PROCEDURE: ABDOMEN COMPLETE ULTRASOUND COMPARISON: None. INDICATIONS: Ascites TECHNIQUE: High resolution sonographic examination was performed of the abdomen. FINDINGS: LIVER: The liver is mildly increased in echogenicity. This finding is nonspecific but most often due to diffuse fatty infiltration of the liver. Fibrosis may appear similar. The parenchymal changes limits evaluation for focal lesions though none are identified. BILIARY: Gallbladder is absent. Common bile duct measures 4.4 cm. PANCREAS: The visualized portion the pancreas is unremarkable. SPLEEN: Unremarkable. The spleen measures s 8.8 x 4.6 x 8.5 cm. KIDNEYS: Mild renal parenchymal thinning. Normal renal parenchymal echogenicity. No hydronephrosis. Cyst at the right renal upper pole measuring 1.9 x 2.0 x 1.6 cm. The right kidney measures 11.4 x 5.3 x 5.0 cm. The left kidney measures 11.0 x 4.7 x 4.7 cm. AORTA/VASCULAR: Normal. No aneurysm. Proximal aorta: 2.4 x 1.8 cm Mid aorta: 1.7 x 1.6 cm Distal aorta: 1.3 x 1.4 cm Aortic bifurcation: 1.0 x 0.9 cm OTHER: Negative. CONCLUSION: 1. Diffuse fatty infiltration of the liver. 2. Mild renal parenchymal thinning. Dictated by: Nichol Shelton MD on 08/27/2018 at 12:26 Continued Report - Page 2 of 2 Patient: ELISA JAMISON Phone#: : 1960 Age: 58 Gender: F Pt. Type: Out Account: [id number] Location: 052 Ordering: WILLIAN SAMSON Exam Date: 08/27/2018/8:59 Family Phys: Charge Code: [id number] Physician: Gray Order #: [id number] DLP Dose#: Approved by: Nichol Shelton MD on 08/27/2018 at 12:26 BMP WITH EGFR Collected: 08/26/2018 Status: F Source: ANICET[facility]ONI MCDANIELSJERONIMO 5:20 PM [facility] REPOSITORY TYPE CODE TESTS RESULT OUT OF RANGE REFERENCE UNITS LAB BMP with eGFR(LOINC) BMP with eGFR Result Comment: BASIC METABOLIC PANEL LAB SODIUM(LOINC) 136 - 145 mmol/l SODIUM 140 LAB POTASSIUM(LOINC) 3.5 - 5.1 mmol/L Low POTASSIUM 3.4 LAB CHLORIDE(LOINC) 98 - 107 mmol/L CHLORIDE 99 LAB CO2(LOINC) 21.0 - mmol/L 31.0 CO2 High 32.4 LAB GLUCOSE(LOINC) 74 - 106 mg/dl GLUCOSE 82 LAB BUN(LOINC) 6 - 20 mg/dl BUN 12 LAB CREATININE(LOINC) 0.6 - 1.2 mg/dl CREATININE 1.0 LAB CALCIUM(LOINC) 8.6 - mg/dl 10.2 CALCIUM 9.7 LAB ANION GAP(LOINC) 10 - 20 mmol/L ANION GAP 12 LAB AGE(LOINC) years AGE 58 LAB eGFR(LOINC) 60 - 999 ML/MINUTE eGFR Low 57 LAB eGFR(AA)(LOINC) 60 - 999 ML/MINUTE eGFR(AA) >60 Result Comment: ACCORDING TO THE NATIONAL KIDNEY DISEASE EDUCATION PROGRAM(NKDE), A NORMAL eGFR IS A VALUE GREATER THAN OR EQUAL TO 60 ML/MIN/1.73 SQ METERS. CHRONIC KIDNEY DISEASE: <60mL/MIN/1.73 SQ METERS KIDNEY FAILURE: <15mL/MIN/1.73 SQ METERS THIS TEST SHOULD ONLY BE USED FOR PATIENTS 18 YEARS OF AGE AND OLDER. Performed By: #### [id number] #### [place] [address] MAGNESIUM Collected: 08/26/2018 Status: F Source: [facility] 5:20 PM [facility] REPOSITORY TYPE CODE TESTS RESULT OUT OF REFERENCE UNITS RANGE LAB MAGNESIUM( 1.6 - 2.6 mg/dl LOINC) MAGNESIUM 2.1 Performed By: #### [id number] #### [place] [address] PROGRESS Observed: 08/20/2018 Status: COMPLETED Source: [place] 3:30 PM [facility] REPOSITORY HNO ID: [id number] Author: Lang Salmeron Service: (none) Author Type: Physician Type: Progress Notes Filed: 08/20/2018 5:18 PM Note Text: PERTINENT CARDIAC HISTORY Atrial fib - PAF, ablation 2014, declines warfarin HTN HL Tobaccoism Pulmonary HTN - likely BROWN, on O2, sleep study pending Allergy to MER-I ADHERENCE TO GUIDELINES MER-I or ARB for HF with prior LVEF<40 (NQF 0081) - N/A ASA or Plavix for ASHD (NQF 0067) - N/A Beta delbert for ASHD with prior ME or prior LVEF<40 (NQF 0070) - N/A Beta delbert for HF with prior LVEF<40 (NQF 0083) - N/A MER-I or ARB for ASHD with DM or prior LVEF<40 (NQF 0066) - N/A Statin therapy for ASHD or FHL or DM - met BMI documented and plan if >25 (NQF 0421) - lifestyle recommendation form Tobacco use screening and referral (NQF 0028) - lifestyle recommendation form Recommendation for whole food, plant based diet - lifestyle recommendation form CLINICAL IMPRESSION/PLAN: Elisa Jamison has pulmonary hypertension, likely related to COPD, sleep apnea and obesity. There may be some diastolic dysfunction as well. I encouraged her to be compliant with her diuretic. She will continue Lasix 20 milligrams daily and we will add Aldactone 25 milligrams daily. Her potassium dose will be decreased to 3 times daily. Basic profile will be checked early next week. She's been encouraged to stop smoking. I encouraged to wear her oxygen at all times. She is not wearing it at this time. I will see her as scheduled. If her symptoms worsen, she has been advised to contact me. Written and verbal health teaching given to patient, patient verbalizes understanding and agrees with treatment plan. DIAGNOSIS FOR VISIT: Pulmonary hypertension Edema HISTORY OF PRESENT ILLNESS Elisa Jamison returns for problem follow-up visit. She has had more problems with abdominal distention and lower extremity edema. She has been scheduled for sleep study. She is on oxygen at night. She had recent increase in diuretics with some improvement, but admits that she is inconsistent with taking it. She smokes a few cigarettes a day. She's had no recent chest discomfort. She's had mild orthopnea. She denies syncope, palpitations, TIAs, amaurosis and claudication. ALLERGIES: ALLERGIES No Known Allergies CURRENT OUTPATIENT MEDICATIONS: potassium chloride ER (KLOR-CON M20) 20 mEq tablet Take 1 tablet by mouth three times daily. furosemide (LASIX) 20 mg tablet Take 1 tablet by mouth once daily. metoprolol tartrate, short acting, (LOPRESSOR) 50 mg tablet Take 2 tablets by mouth twice daily. amLODIPine (NORVASC) 5 mg tablet Take 1 tablet by mouth once daily. Levothyroxine 25 mcg cap Take by mouth once daily. aspirin, enteric coated (ADULT LOW DOSE ASPIRIN) 81 mg EC tablet Take 1 tablet by mouth once daily. Omeprazole (PRILOSEC) 40 mg capsule Take 1 capsule by mouth once daily. ALPRAZolam (XANAX) 1 mg tablet Take 0.5 tablets by mouth at bedtime as needed. spironolactone (ALDACTONE) 25 mg tablet Take 1 tablet by mouth once daily. venlafaxine ER (EFFEXOR XR) 150 mg 24 hr capsule Take 150 mg by mouth once daily. rosuvastatin (CRESTOR) 10 mg tablet Take 5 mg by mouth once daily. Varenicline (CHANTIX STARTING MONTH BOX) 0.5 mg (11)- 1 mg (42) tablet Take one 0.5mg tablet once daily for 3 days, increase to one 0.5mg tablet twice daily for 3 days, increase to one 1mg tablet twice daily. escitalopram oxalate (LEXAPRO) 20 mg tablet Take 1 tablet by mouth once daily. oxybutynin ER (DITROPAN XL) 10 mg 24 hr tablet Take 10 mg by mouth once daily. clonazePAM (KLONOPIN) 2 mg tablet Take 1 tablet by mouth twice daily as needed. PHYSICAL EXAMINATION: VITAL SIGNS: BP 125/83 Pulse 80 Ht 5' 4 (1.63m) Wt 243 lb (110.2kg) BMI 41.69 kg/(m2). Chest: Clear to auscultation. Trachea is midline. Air entry is equal. Cardiac: Regular rhythm. S1 and S2 are normal. PMI is nondisplaced. There are no murmurs, rubs or gallops. Carotids are brisk without bruits. JVP is 10-12 cm. Abdomen: Soft and nontender.She is obese. Ascites cannot be excluded. There are no pulsatile masses or bruits. No liver enlargement. Bowel sounds are active. Extremities: 2 plus soft pitting edema. Pulses are intact and symmetrical. Records from [facility] were reviewed. LV function is normal. RVSP was estimated to be 50 millimeters. There was mild tricuspid and mitral insufficiency. Venous Doppler examination showed no evidence of DVT. CBC was normal. Renal function was normal. EKG showed no acute change. Electronically Signed: Lang Salmeron MD August 20, 2018 3:30 PM CC: Willian Samson MD CNOV Observed: 08/20/2018 Status: COMPLETED Source: [place] 3:00 PM [facility] REPOSITORY Office Visit (CAWSTR) ELISA JAMISON ([id number]) 1960 F Date Time Provider Department 08/20/18 3:00 PM LANG SALMERON [facility] During your visit today, we recorded the following information about you: Pulse Blood pressure Weight Height 80/minute 125/83 110.2 kg 1.626 m Lang Salmeron MD 08/20/2018 5:18 PM Signed PERTINENT CARDIAC HISTORY Atrial fib - PAF, ablation 2014, declines warfarin HTN HL Tobaccoism Pulmonary HTN - likely BROWN, on O2,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 Neck Neck: Positive normal visual inspection, full ROM and trachea midline; negative lymphadenopathy, JVD or tender Chest Wall Chest: Positive symmetric chest movement and increased A/P diameter Resp lung sounds: Positive clear to auscultation, diminished, normal expiratory time and normal respiratory effort; negative wheezes, rhonchi, rales, dullness to percussion or wheeze present on forced exhalation Cardio Cardiac: Positive regular rate, regular rhythm, S1 normal and S2 normal; negative murmur GI GI: Positive normal to inspection and obese; negative distended Genitourinary: Positive deferred Musc Musculoskeletal: Positive steady gait and ROM normal; negative kyphosis or scoliosis Skin Pulmonary Skin Exam: Positive intact; negative rash Pulses Pulse: Yes pulses normal x4 extremities Extremities Extremities: Yes capillary refill normal, Yes clubbing, No cyanosis, Yes edema Location: lower extremity location: Bilateral pitting +3 Neuro Neurologic: Yes conversant, Yes no focal neuro deficits, Yes normal concentration, Yes understands questions, Yes cooperative, Yes normal cognition, Yes normal coordination, No tremor Lymph Lymphatic: No lymphadenopathy, No tenderness, No cervical adenopathy Psych Appearance: Positive grossly normal, eye contact and well kempt Mental Status: Positive mental status grossly normal Mood: Positive congruent mood Affect: Positive normal affect Office Procedures Smoking Cessation Time Spent greater than 10 minutes: Yes Coding Level of Care Code Off vis,est,level 4 Diagnoses Chronic respiratory failure with hypoxia J96.11 Stage 1 mild COPD by GOLD classification J44.9 BROWN (obstructive sleep apnea) G47.33 Tobacco dependence F17.200 Additional Codes Time Spent - greater than 10 minutes: Yes ([id number]) 08/06/18 1600 <Electronically signed by Alejandrina VALENTINE> Date Alejandrina VALENTINE Cosigner Signature: Date (if applicable) CC: Willian Samson MD CV ECHO COMPLETE Observed: 07/30/2018 Status: F Source: [place] [place] 2:11 PM [place] [id number] Patient: YAQUELIN ELISA D. Phone#: : 1960 Age: 58 Gender: F Pt. Type: Out Account: [id number] Location: [facility] Ordering: WILLIAN SAMSON Exam Date: 07/30/2018/12:50 Family Phys: LAWRENCE SALMERON Charge Code: [id number] Physician: Gray Order #: [id number] DLP Dose#: PROCEDURE: ECHOCARDIOGRAM WITH DOPPLER AND COLOR FLOW HISTORY: 58-year-old female with hypertension, dyslipidemia active smoker and moderate COPD INDICATIONS: Moderate chronic obstructive pulmonary disease TECHNIQUE: A 2-D ultrasound, color spectral Doppler and M-mode evaluation of the heart and great vessels. PATIENT MEASUREMENTS: Height (in.): 64 BSA: 2.1 Weight (lbs.): 240 BP: 140/96 Bakery Demonstrator: KARLIE M MODE 2D MEASUREMENTS AND CALCULATIONS: LVIDd: 4.45 cm LVIDs: 2.76 cm IVSd: 1.35 cm LVPWd: 1.27 cm FS: 38.04 % Ao Root diam: 2.82 cm LA diam: 4.16 cm LA Volume Index: 29.5 mL/m2 LA A4 Area: 20.3 cm RA A4 Area: 15.6 cm RVDd: 2.73 cm TAPSE: 16 mm DOPPLER MEASUREMENTS AND CALCULATIONS MITRAL MV E MAX frances: 97.70 cm/s MV A MAX frances: 88.00 cm/s MV E-A ratio: 1.11 Lat Peak E' Frances 10 cm/s Septal Peak E' FRANCES 4 cm/s Continued Report - Page 2 of 3 Patient: ELISA JAMISON Phone#: : 1960 Age: 58 Gender: F Pt. Type: Out Account: [id number] Location: [facility] Ordering: WILLIAN SAMSON Exam Date: 07/30/2018/12:50 Family Phys: LAWRENCE SALMERON Charge Code: [id number] Physician: Gray Order #: [id number] DLP Dose#: Lateral E./E.' 9.6 Medial E./E.' 23.5 AORTIC Ao V2 max: 146.20 cm/s Ao max P.55 mm[Hg] LV V1 Max 93.63 cm/s LV V1 Max PG 3.51 mm[Hg] PULMONIC PA V2 Max 94.20 cm/s PA Max PG 3.55 mm[Hg] TRICUSPID TR Max Frances 309.92 cm/s TR max PG 38.42 mm[Hg] RVSP 46 mmHg 2D/M-MODE AND COLOR FLOW LEFT VENTRICLE: Mild concentric left ventricle hypertrophy with normal wall motion and systolic function, ejection fraction 55-60%. Grade 2 diastolic dysfunction with elevated left atrial pressure. WALL MOTION: 1 - Basal anterior: Normal. 7 - Mid anterior: Normal. 13 - Apical anterior: Normal. 2 - Basal anteroseptal: Normal. 8 - Mid anteroseptal: Normal. 14 - Apical septal: Normal. 3 - Basal inferoseptal: Normal. 9 - Mid inferoseptal: Normal. 15 - Apical inferior: Normal. 4 - Basal inferior: Normal. 10-Mid inferior: Normal. 16 - Apical lateral: Normal. 5 - Basal inferolateral: Normal. 11-Mid inferolateral: Normal. 6 - Basal anterolateral: Normal. 12-Mid anterolateral: Normal. RIGHT VENTRICLE: Normal size and systolic function LEFT ATRIUM: Normal RIGHT ATRIUM: Normal MITRAL VALVE: Mild annular calcification with normal leaflet structure and mobility. No significant mitral stenosis or regurgitation. TRICUSPID VALVE: Normal leaflet structure and mobility. Mild tricuspid regurgitation. AORTIC VALVE: Trileaflet aortic valve with normal leaflet structure and mobility. Trace aortic insufficiency. No significant aortic stenosis. PULMONIC VALVE: Normal leaflet structure and mobility. Trivial pulmonic insufficiency. AORTIC ROOT: Normal size IVC/SVC: Mildly dilated and normal respirophasic response PERICARDIUM: No significant pericardial effusion CONCLUSION: 1. Mild concentric left hypertrophy with normal wall motion and systolic function, ejection fraction 55-60%. Continued Report - Page 3 of 3 Patient: ELISA JAMISON Phone#: : 1960 Age: 58 Gender: F Pt. Type: Out Account: [id number] Location: [facility] Ordering: WILLIAN SAMSON Exam Date: 07/30/2018/12:50 Family Phys: LAWRENCE SALMERON Charge Code: [id number] Physician: Gray Order #: [id number] DLP Dose#: 2. Normal right ventricle size and systolic function. 3. Mild mitral annular calcification. 4. Mild tricuspid regurgitation. 5. Grade 2 diastolic dysfunction with elevated left atrial pressure. 6. RVSP estimated to be 46 mmHg, suggestive of mild pulmonary hypertension. Dictated by: CHRIS LOYOLA on 07/30/2018 at 16:32 Approved by: CHRIS LOYOLA on 07/30/2018 at 16:32 6 MINUTE WALK TEST Observed: 07/29/2018 Status: F Source: [place] 3:01 PM [facility] REPOSITORY [facility] Pulmonary Services/Neurology [address] [place] [address] MR#: [id number] Acct: [id number] Name: ELISA JAMISON Rep #: [id number] : 1960 58 From: Alphonso Ayon DO Referring Dr: Alejandrina Augustine TEACHER PHYSICALLY IMPAIRED Date: Ordering Dr: Sex: F C Location: PSN PSN 6 Minute Walk Test - 6 Minute Walk Test 6 Minute Walk Test: 6 Minute Walk Test PSN:6-Minute Walk Test Start: 07/27/18 12:51 Freq: Status: Active Protocol: [id number] Document 07/27/18 12:52 [facility] (Rec: 07/27/18 12:58 AMH [id number]) 6 Minute Walk Test Date Performed 07/27/18 Time Performed 12:00 Height 5 ft 4 in Weight: 240 lb Weight in Pounds 240.[address]: Alejandrina Augustine Assistive device used: None Pre-test Oxygen Delivery Method Room Air Pulse Ox (%) 84 Pulse Rate (60-100 beats/min) 92 Dyspnea Nickolas Scale (0-10) 3 Reported Symptoms Cyanotic Increased Work of Breathing 1st minute Oxygen Flow Rate (L/min) (L/min) 2 Oxygen Delivery Method Nasal Cannula Pulse Ox (%) 89 Pulse Rate (60-100 beats/min) 94 Dyspnea Nickolas Scale (0-10) 4 Reported Symptoms Increased Work of Breathing 2nd minute Oxygen Flow Rate (L/min) (L/min) 2 Oxygen Delivery Method Nasal Cannula Pulse Ox (%) 88 Pulse Rate (60-100 beats/min) 96 Dyspnea Nickolas Scale (0-10) 5 Number of Rests Taken 1 Reported Symptoms Increased Work of Breathing 3rd minute Oxygen Flow Rate (L/min) (L/min) 3 Oxygen Delivery Method Nasal Cannula Pulse Ox (%) 87 Pulse Rate (60-100 beats/min) 100 Dyspnea Nickolas Scale (0-10) 5 Number of Rests Taken 1 Reported Symptoms Increased Work of Breathing 4th minute Oxygen Flow Rate (L/min) (L/min) 4 Oxygen Delivery Method Nasal Cannula Pulse Ox (%) 91 Pulse Rate (60-100 beats/min) 109 H Dyspnea Nickolas Scale (0-10) 6 Number of Rests Taken 1 Reported Symptoms Increased Work of Breathing 5th minute Oxygen Flow Rate (L/min) (L/min) 4 Oxygen Delivery Method Nasal Cannula Pulse Ox (%) 92 Pulse Rate (60-100 beats/min) 110 H Dyspnea Nickolas Scale (0-10) 6 Number of Rests Taken 1 Reported Symptoms Increased Work of Breathing 6th minute Oxygen Flow Rate (L/min) (L/min) 4 Oxygen Delivery Method Nasal Cannula Pulse Ox (%) 93 Pulse Rate (60-100 beats/min) 112 H Dyspnea Nickolas Scale (0-10) 6 Number of Rests Taken 1 Reported Symptoms Increased Work of Breathing Post-test Oxygen Flow Rate (L/min) (L/min) 2 Oxygen Delivery Method Nasal Cannula Pulse Ox (%) 91 Pulse Rate (60-100 beats/min) 87 Dyspnea Nickolas Scale (0-10) 3 Reported Symptoms Increased Work of Breathing Full Laps Walked 6 Partial Lap, Number of Tiles Walked 10 Total Distance Walked (ft) 364 07/27/18 12:55 Cardiopulmonary Services by Sherrie Smith Patient arrived on room air for testing. Upon being taken to exam room, spo2 was at 84% and patient had dusky lips and fingers. Oxygen was placed on patient at 2lpm with spo2 increasing to 92%. Walk testing began on 2lpm. Patient has f/u delio Grayson in office Thursday07/30/18 Initialized on 07/27/18 12:55 - END OF NOTE - Interpretation Interpretation: The patient ambulated 364 feet over the course of 6 minutes beginning on room air without assistive devices or breaks. Pretesting oxygen saturation was noted to be 84% on room air. 2 L/min of oxygen was applied and the walk test proceeded. Unfortunately, the patient continued to desaturate on multiple occasions requiring an escalation in her supplemental flow rate to 4 L/min in order to maintain oxygen saturations at or above 88%. This testing indicates the presence of impaired walk distance and significant exertional oxygen desaturation. - Recommendations Recommendations: 2 L/min of supplemental oxygen should be utilized at rest and 4 L/min should be utilized with exertion. 07/29/18 1501 <Electronically signed by Alphonso Brown DO> Date Alphonso Ayon DO CC: Date Dictated: 07/29/181458 Date Transcribed: 07/29/181458 Miner Assistant: Alphonso Ayon DO Signed MAGNESIUM Collected: 07/27/2018 Status: F Source: [facility] 2:30 PM [facility] REPOSITORY TYPE CODE TESTS RESULT OUT OF REFERENCE UNITS RANGE LAB MAGNESIUM( 1.6 - 2.6 mg/dl LOINC) MAGNESIUM 1.8 Performed By: #### [id number] #### [facility],[address] [place] [address] BMP WITH EGFR Collected: 07/27/2018 Status: F Source: [facility] 2:30 PM [facility] REPOSITORY TYPE CODE TESTS RESULT OUT OF RANGE REFERENCE UNITS LAB BMP with eGFR(LOINC) BMP with eGFR Result Comment: BASIC METABOLIC PANEL LAB SODIUM(LOINC) 136 - 145 mmol/l SODIUM 139 LAB POTASSIUM(LOINC) 3.5 - 5.1 mmol/L POTASSIUM 3.8 LAB CHLORIDE(LOINC) 98 - 107 mmol/L CHLORIDE 101 LAB CO2(LOINC) 21.0 - mmol/L 31.0 CO2 29.2 LAB GLUCOSE(LOINC) 74 - 106 mg/dl GLUCOSE 96 LAB BUN(LOINC) 6 - 20 mg/dl BUN 7 LAB CREATININE(LOINC) 0.6 - 1.2 mg/dl CREATININE 0.8 LAB CALCIUM(LOINC) 8.6 - mg/dl 10.2 CALCIUM 8.8 LAB ANION GAP(LOINC) 10 - 20 mmol/L ANION GAP 13 LAB AGE(LOINC) years AGE 58 LAB eGFR(LOINC) 60 - 999 ML/MINUTE eGFR >60 LAB eGFR(AA)(LOINC) 60 - 999 ML/MINUTE eGFR(AA) >60 Result Comment: ACCORDING TO THE NATIONAL KIDNEY DISEASE EDUCATION PROGRAM(NKDE), A NORMAL eGFR IS A VALUE GREATER THAN OR EQUAL TO 60 ML/MIN/1.73 SQ METERS. CHRONIC KIDNEY DISEASE: <60mL/MIN/1.73 SQ METERS KIDNEY FAILURE: <15mL/MIN/1.73 SQ METERS THIS TEST SHOULD ONLY BE USED FOR PATIENTS 18 YEARS OF AGE AND OLDER. Performed By: #### [id number] #### [facility],[address] [place] [id number] CV VENOUS LEG RT Observed: 07/22/2018 Status: F Source: [place] [place] 4:53 PM [facility] REPOSITORY [place] [id number] Patient: ELISA JAMISON Phone#: : 1960 Age: 58 Gender: F Pt. Type: ER Account: [id number] Location: 052 [facility] Exam Date: 07/22/2018/16:22 Family Phys: JOJO HILLS Charge Code: [id number] Physician: Gray Order #: [id number] DLP Dose#: PROCEDURE: VENOUS DOPPLER RT LEG COMPARISON: [facility], , VENOUS DOPPLER RT LEG, 06/28/2018, 14:06. INDICATIONS: Swelling TECHNIQUE: Color duplex Doppler ultrasound evaluation analysis was performed in the usual manner. MATHEMATICAL PHYSICIST: THANH RISK FACTORS FOR VENOUS DISEASE: EXAMINATION: RIGHT +Present -Reduced o Absent LEFT SPONT PHASIC AUG REFLUX COMP SPONT PHASIC AUG REFLUX COMP + + + o + CFV + + + o + + SFJ + + + o + FV (prox) + FV (mid) + FV (dist) + + + o + POP V + + + o + T/P TRUNK + + + o + PTV + + + o + PERONEAL V + GSV GASTROC SOLEAL V MATHEMATICAL PHYSICIST'S NOTES: Continued Report - Page 2 of 2 Patient: GURDEEP JAMISONRA Fowler Phone#: : 1960 Age: 58 Gender: F Pt. Type: ER Account: [id number] Location: 052 [facility] Exam Date: 07/22/2018/16:22 Family Phys: JOJO [place] Charge Code: [id number] Physician: Gray Order #: [id number] DLP Dose#: FINDINGS: THROMBI: None visible. COMPRESSIBILITY: Normal. OTHER: Negative. CONCLUSION: 1. There is no evidence of superficial or deep vein thrombus. Dictated by: Merna Stevenson MD on 07/22/2018 at 17:16 Approved by: Merna Stevenson MD on 07/22/2018 at 17:16 EMERGENCY REPORT Observed: 07/22/2018 Status: F Source: [place] 3:49 PM [facility] EMERGENCY ROOM REPORT NAME ACCOUNT SEX AGE ADMIT DISCHARGE PT MED. RECORD# NUMBER DATE DATE TYPE YAQUELIN [id number] F 58 07/22/18 07/22/18 3 ELISA Cortes [id number] ROOM: ER DATE OF : 1960 DICTATING PHYSICIAN: Jackson Rolon HISTORY OF PRESENT ILLNESS: The patient comes in complaining of swelling in her left leg. She has had this pain. She saw her doctor, and they were concerned about a blood clot and told her to come to the Emergency Department. She says the pain is a 10/10. She also has pain in her back which is chronic for her. She presents to the Emergency Department. PAST MEDICAL HISTORY: She has history of hypertension, COPD, and atrial fibrillation. PAST SURGICAL HISTORY: She has had an appendectomy, cholecystectomy and hysterectomy. SOCIAL HISTORY: She does smoke. She denies alcohol use. REVIEW OF SYSTEMS: Eight systems were reviewed and were negative except as mentioned above. PHYSICAL EXAMINATION: She is an awake, alert and oriented female in no acute distress. She is afebrile. Pulse is 80, respirations 17, blood pressure 156/101, and pulse oximetry 94% on room air. Head is normocephalic, atraumatic. Eyes: Pupils are equal, round and reactive to light. Extraocular muscles are intact. Nares are patent. Throat has adequate oral moisture. Uvula is midline. Neck is supple without petechiae or rash. Heart rate is regular without murmur. S1 is equal to S2. No S3 or S4 appreciated. Lungs are clear to auscultation bilaterally. No rales, rhonchi or retractions. Abdomen is soft, nontender and nondistended. Skin is warm and dry. DIAGNOSTIC DATA: The patient had an ultrasound of the leg, which showed no DVT or SVT. EMERGENCY DEPARTMENT COURSE AND TREATMENT: We will write her for 3 Percocet for pain, and she will be discharged in stable condition. DIAGNOSES: Page 1 of 2 YAQUELIN, ELISA D Emergency Room Report 1. Right leg swelling. 2. History of chronic low back pain. Dictated By: Jackson Rolon DO 07/23/18 20:02 JOB #: [id number] Transcribed By: juarez 07/24/18 14:41 Electronically signed by: BRUNILDA Rolon D.O. 07/31/18 20:22 Page 2 of 2 ELISA JAMISON Emergency Room Report CV VENOUS LEG RT Observed: 06/28/2018 Status: F Source: [place] 2:24 PM [place] [address] Patient: ELISA JAMISON Phone#: : 1960 Age: 58 Gender: F Pt. Type: Out Account: [id number] Location: [facility] Ordering: DR. OSCAR CHAN Exam Date: 06/28/2018/14:06 Family Phys: Bloson Charge Code: [id number] Physician: Gray Order #: [id number] DLP Dose#: PROCEDURE: VENOUS DOPPLER RT LEG COMPARISON: None. INDICATIONS: Right leg swelling TECHNIQUE: Color duplex Doppler ultrasound evaluation analysis was performed in the usual manner. MATHEMATICAL PHYSICIST: KARLIE RISK FACTORS FOR VENOUS DISEASE: Other Right leg swelling EXAMINATION: RIGHT +Present -Reduced o Absent LEFT SPONT PHASIC AUG REFLUX COMP SPONT PHASIC AUG REFLUX COMP + + + o + CFV + + + o + + SFJ + + + o + FV (prox) + FV (mid) + FV (dist) + + + o + POP V + + + o + T/P TRUNK + + + o + PTV + + + o + PERONEAL V + GSV GASTROC SOLEAL V MATHEMATICAL PHYSICIST'S NOTES: Continued Report - Page 2 of 2 Patient: ELISA JAMISON Phone#: : 1960 Age: 58 Gender: F Pt. Type: Out Account: [id number] Location: 2 Ordering: DR. OSCAR CHAN Exam Date: 06/28/2018/14:06 Family Phys: JOJO WALKER Charge Code: [id number] Physician: Gray Order #: [id number] DLP Dose#: FINDINGS: THROMBI: None visible. COMPRESSIBILITY: Normal. OTHER: Subcutaneous edema is present. CONCLUSION: 1. There is no evidence of superficial or deep vein thrombosis. Dictated by: Merna Stevenson MD on 06/28/2018 at 16:21 Approved by: Merna Stevenson MD on 06/28/2018 at 16:21 CBC Collected: 06/27/2018 Status: F Source: [place] [place] 6:42 PM [facility] REPOSITORY TYPE CODE TESTS RESULT OUT OF RANGE REFERENCE UNITS LAB CBC(LOINC) CBC Result Comment: CBC-COMPLETE BLOOD COUNT LAB WBC(LOINC) 4.5 - 10.8 x 10EE3/UL WBC 8.0 LAB RBC(LOINC) 4.10 - x 10EE6/UL 5.30 RBC High 5.44 LAB HEMOGLOBIN(LOINC 12.0 - g/dl ) 16.0 HEMOGLOBIN 15.8 LAB HEMATOCRIT(LOINC 34.0 - % ) 46.0 High HEMATOCRIT 47.1 LAB MCV(LOINC) 80 - 99 fl MCV 87 LAB MCH(LOINC) 27 - 33 pg MCH 29 LAB MCHC(LOINC) 32 - 36 X10 3 MCHC 34 LAB RDW/CV(LOINC) 12.0 - % 15.6 RDW/CV 14.9 LAB PLATELET(LOINC) 150 - 450 x10EE3/UL PLATELET 284 LAB MPV(LOINC) 6.6 - 10.5 fl MPV 7.3 Result Comment: AUTOMATED DIFFERENTIAL LAB NEUT %(LOINC) 46.0 - 76.0 % NEUT % 65.3 LAB LYMPH %(LOINC) 20.0 - 45.0 % LYMPH % 24.1 LAB MONOS %(LOINC) 0.0 - 10.0 % MONOS % 8.8 LAB EO %(LOINC) 0.0 - 7.0 % EO % 1.0 LAB BASO %(LOINC) 0.0 - 2.0 % BASO % 0.8 LAB Lymph #(LOINC) 0.80 - 2.80 x10EE3/U L Lymph # 1.90 LAB Neut #(LOINC) 1.50 - 7.10 x10EE3/U L Neut # 5.20 LAB [place] #(LOINC) 0.20 - 1.00 x10EE3/U L [place] # 0.70 LAB EO #(LOINC) 0.00 - 0.50 x10EE3/U L EO # 0.10 LAB Baso #(LOINC) 0.00 - 0.10 x10EE3/U L Baso # 0.10 LAB MANUAL DIFF(LOINC) MANUAL DIFF N/A LAB MORPHOLOGY(LOINC ) MORPHOLOGY N/A Result Comment: {CD] Performed By: #### [id number] #### [facility],[address] [place] [address] BMP WITH EGFR Collected: 06/27/2018 Status: F Source: [facility] 6:42 PM [facility] REPOSITORY TYPE CODE TESTS RESULT OUT OF RANGE REFERENCE UNITS LAB BMP with eGFR(LOINC) BMP with eGFR Result Comment: BASIC METABOLIC PANEL LAB SODIUM(LOINC) 136 - 145 mmol/l SODIUM 139 LAB POTASSIUM(LOINC) 3.5 - 5.1 mmol/L POTASSIUM 3.5 LAB CHLORIDE(LOINC) 98 - 107 mmol/L CHLORIDE 101 LAB CO2(LOINC) 21.0 - mmol/L 31.0 CO2 29.0 LAB GLUCOSE(LOINC) 74 - 106 mg/dl GLUCOSE 94 LAB BUN(LOINC) 6 - 20 mg/dl BUN 8 LAB CREATININE(LOINC) 0.6 - 1.2 mg/dl CREATININE 0.7 LAB CALCIUM(LOINC) 8.6 - mg/dl 10.2 CALCIUM 9.2 LAB ANION GAP(LOINC) 10 - 20 mmol/L ANION GAP 13 LAB AGE(LOINC) years AGE 58 LAB eGFR(LOINC) 60 - 999 ML/MINUTE eGFR >60 LAB eGFR(AA)(LOINC) 60 - 999 ML/MINUTE eGFR(AA) >60 Result Comment: ACCORDING TO THE NATIONAL KIDNEY DISEASE EDUCATION PROGRAM(NKDE), A NORMAL eGFR IS A VALUE GREATER THAN OR EQUAL TO 60 ML/MIN/1.73 SQ METERS. CHRONIC KIDNEY DISEASE: <60mL/MIN/1.73 SQ METERS KIDNEY FAILURE: <15mL/MIN/1.73 SQ METERS THIS TEST SHOULD ONLY BE USED FOR PATIENTS 18 YEARS OF AGE AND OLDER. Performed By: #### [id number] #### [facility],[address] [place] [address] TROPONIN Collected: 06/27/2018 Status: F Source: [place] 6:42 PM [facility] REPOSITORY TYPE CODE TESTS RESULT OUT OF REFERENCE UNITS RANGE LAB TROPONIN 0.00 - 0.05 ng/ml I(LOINC) TROPONIN I <0.01 Result Comment: Elevated troponin (above the 99th percentile) usually indicates myocardial ischemia. Results must be interpreted within the clinical setting. 1.Non-ischemic pathology can also cause elevated troponin levels (e.g., acute pulmonary embolism, myocarditis, pericarditis, heart failure, intracranial injury, rhabdomyolisis, sepsis, shock and renal insufficiency). 2.Approximately 1% of healthy adults have elevated troponin levels. 3.Analytical false positive results rarely occur(due to multiple interferences such as heterophile antibodies). Performed By: #### [id number] #### [facility],[address] [place] [address] BNP (B-TYPE NATRIURETIC Collected: 06/27/2018 Status: F Source: [facility]) 6:42 PM [facility] TYPE CODE TESTS RESULT OUT OF RANGE REFERENCE UNITS LAB BNP(LOINC) 1 - 100 pg/ml BNP 20 Performed By: #### [id number] #### [facility],[address] [place] [address] EMERGENCY REPORT Observed: 06/27/2018 Status: F Source: [place] 6:03 PM [facility] EMERGENCY ROOM REPORT NAME ACCOUNT SEX AGE ADMIT DISCHARGE PT MED. RECORD# NUMBER DATE DATE TYPE YAQUELIN [id number] F 58 06/27/18 3 ELISA Cortes [id number] ROOM: ER DATE OF : 1960 DICTATING PHYSICIAN: Oscar Chan CHIEF COMPLAINT: Right leg, foot swelling, and back pain. HISTORY OF PRESENT ILLNESS: This is a 58-year-old female who presents with the chief complaint as stated above. She said for the past week her foot and leg is more swollen on the right. She does not really have any pain associated with it. No recent history of travel, surgery, immobilization, DVT, or pulmonary emboli. She initially came in with her oxygen level low. She said that she has chronic back pain and was supposed to have back surgery, and they found out that she had severe COPD and is supposed to be on oxygen around the clock, but she decided she does not need it, so she does not wear it and continues to smoke. Pulse ox was 86% on arrival, but as soon as we put her on what she is supposed to be on at home it comes up greater than 92%. She said her breathing is not any different from normal. She is not short of breath. No history of pulmonary emboli in the past. She states her back pain is chronic in nature, unchanged, and has been going on for greater than a year. She saw a specialist and they wanted to do physical therapy and shots, but she does not want to go that route. She has a new primary care physician she is going to be seeing this week to discuss these concerns as well. PAST MEDICAL HISTORY: COPD O2 dependent, but not compliant, high blood pressure. PAST SURGICAL HISTORY: No cardiac catheterization or stents. MEDICATIONS: See nursing notes. FAMILY HISTORY: Noncontributory. SOCIAL HISTORY: Positive for tobacco. Denies alcohol or illicit drug abuse. REVIEW OF SYSTEMS: Ten systems reviewed and present above in the HPI. PHYSICAL EXAMINATION: Vital signs: Blood pressure 191/95, pulse 119, respiratory rate 18, temperature 97.9, O2 saturation 86% on room air and she is supposed to be on 2 liters and comes up above 92% as soon as you put her on the oxygen she is supposed to be on at home that she has not been compliant with. General: She is awake, alert and nontoxic, no respiratory distress or conversational dyspnea. Head: Page 1 of 2 ELISA JAMISON Emergency Room Report Normocephalic and atraumatic. Pupils are equal and reactive to light bilaterally. Mucous membranes are moist. Full range of motion of the neck without any difficulty. Heart rate and rhythm are regular without murmur, gallop, or rub. Lungs: Clear to auscultation bilaterally without wheeze, rales, or rhonchi. Abdomen: Soft. No reproducible tenderness, guarding, rebound, or rigidity. Femoral pulses symmetrical. Right lower extremity is a little bit more swollen and tight in the calf compared to the left. If I press on it really hard it hurts, but it does not hurt when she flexes and extends her foot. Negative Gloria's sign. There is a little calf tenderness. No obvious swelling. Good pulses and perfusion distally with no neurological deficits. No midline back tenderness, paralumbar musculoskeletal tenderness. Negative bilateral straight leg raise test. DIAGNOSTIC DATA: Laboratory evaluation is pending. EKG shows sinus tachycardia at 103 beats per minute, nonspecific ST-T wave changes. No acute ST segment elevation or depression. EMERGENCY DEPARTMENT COURSE AND TREATMENT/PLAN/DISPOSITION: I went ahead and gave her Lovenox and scheduled her for an outpatient duplex ultrasound tomorrow at 2 o'clock. Dictated By: Oscar Chan DO 06/27/18 19:02 JOB #: [id number] Transcribed By: am 06/27/18 19:38 Electronically signed by: E-Sign: OSCAR CHAN MD 06/29/18 12:00 Page 2 of 2 ELISA JAMISON Emergency Room Report EMERGENCY REPORT Observed: 06/27/2018 Status: F Source: [facility] 6:03 PM [facility] EMERGENCY ROOM REPORT NAME ACCOUNT SEX AGE ADMIT DISCHARGE PT MED. RECORD# NUMBER DATE DATE TYPE YAQUELIN, [id number] F 58 06/27/18 3 ELISA Cortes [id number] ROOM: ER DATE OF : 1960 DICTATING PHYSICIAN: Oscar Chan ADDENDUM: DIAGNOSTIC DATA: Troponin is negative. Electrolytes are completely normal. White count is not elevated, H&H are stable. No left shift. EMERGENCY DEPARTMENT COURSE AND TREATMENT: DVT ultrasound ordered for 2 o'clock tomorrow. DIAGNOSES: 1. Right lower extremity swelling. 2. Chronic back pain. PLAN/DISPOSITION: The patient will be discharged to follow up with primary care physician as scheduled this week, DVT ultrasound tomorrow, and discharged in stable condition. Dictated By: Oscar Chan DO 06/27/18 19:34 JOB #: [id number] Transcribed By: am 06/27/18 19:57 Electronically signed by: E-Sign: OSCAR CHAN MD 06/29/18 12:00 Page 1 of 1 ELISA JAMISON Emergency Room Report PROGRESS Observed: 04/23/2018 Status: COMPLETED Source: [place] 4:02 PM [facility] REPOSITORY HNO ID: [id number] Author: Lang Salmeron Service: (none) Author Type: Physician Type: Progress Notes Filed: 04/23/2018 5:21 PM Note Text: PERTINENT CARDIAC HISTORY Atrial fib - PAF, ablation 2014, declines warfarin HTN HL Tobaccoism ADHERENCE TO GUIDELINES MER-I or ARB for HF with prior LVEF<40 (NQF 0081) - N/A ASA or Plavix for ASHD (NQF 0067) - N/A Beta delbert for ASHD with prior ME or prior LVEF<40 (NQF 0070) - N/A Beta delbert for HF with prior LVEF<40 (NQF 0083) - N/A MER-I or ARB for ASHD with DM or prior LVEF<40 (NQF 0066) - N/A Statin therapy for ASHD or FHL or DM - N/A BMI documented and plan if >25 (NQF 0421) - lifestyle recommendation form Tobacco use screening and referral (NQF 0028) - lifestyle recommendation form Recommendation for whole food, plant based diet - lifestyle recommendation form CLINICAL IMPRESSION/PLAN: Elisa Jamison has had considerable weight gain. Her blood pressure is not well controlled. She clearly will not tolerate an MER inhibitor. I recommend that she increase metoprolol to 50 milligrams twice daily and follow her vital signs closely over the next few days. I will add additional medication as necessary, although we'll avoid ARBs and Mer inhibitors. She's not having any symptoms of ischemia. There is no evidence of decompensation of heart function, although we may need to update her echocardiogram. She's had no sensation of irregular heart rhythm and I do not believe she has had any more atrial fibrillation. Tentatively, I will see her in 6 months or as needed. Written and verbal health teaching given to patient, patient verbalizes understanding and agrees with treatment plan. DIAGNOSIS FOR VISIT: Hypertension Tachycardia HISTORY OF PRESENT ILLNESS Elisa Jamison returns for problem follow-up visit. Recently, her blood pressure has been elevated. A series of medications have been tried. She has had considerable weight gain and some edema. She was unable to tolerate losartan due to angioedema. Amlodipine caused peripheral edema. Most recently she was started on a beta delbert at low dose. She has not been wearing her oxygen at night. She reports that sleep study is still pending. She has refused warfarin. She denies chest pain. She's had diffuse edema. She denies syncope, TIAs, amaurosis and claudication. She has been aware that her heart rate has been elevated. ALLERGIES: ALLERGIES No Known Allergies CURRENT OUTPATIENT MEDICATIONS: Levothyroxine 25 mcg cap Take by mouth once daily. venlafaxine ER (EFFEXOR XR) 150 mg 24 hr capsule Take 150 mg by mouth once daily. metoprolol succinate 25 mg CSpX Take by mouth once daily. furosemide (LASIX) 20 mg tablet Take 20 mg by mouth once daily. rosuvastatin (CRESTOR) 10 mg tablet Take 5 mg by mouth once daily. potassium chloride ER (KLOR-CON M20) 20 mEq tablet Take 1 tablet by mouth three times daily. aspirin, enteric coated (ADULT LOW DOSE ASPIRIN) 81 mg EC tablet Take 1 tablet by mouth once daily. Omeprazole (PRILOSEC) 40 mg capsule Take 1 capsule by mouth once daily. ALPRAZolam (XANAX) 1 mg tablet Take 0.5 tablets by mouth at bedtime as needed. Varenicline (CHANTIX STARTING MONTH BOX) 0.5 mg (11)- 1 mg (42) tablet Take one 0.5mg tablet once daily for 3 days, increase to one 0.5mg tablet twice daily for 3 days, increase to one 1mg tablet twice daily. escitalopram oxalate (LEXAPRO) 20 mg tablet Take 1 tablet by mouth once daily. oxybutynin ER (DITROPAN XL) 10 mg 24 hr tablet Take 10 mg by mouth once daily. clonazePAM (KLONOPIN) 2 mg tablet Take 1 tablet by mouth twice daily as needed. PHYSICAL EXAMINATION: VITAL SIGNS: BP 148/84 Pulse 96 Resp 20 Ht 5' 4 (1.63m) Wt 225 lb 6.4 oz (102.2kg) BMI 38.67 kg/(m2). Chest: Clear to auscultation. Trachea is midline. Air entry is equal. Cardiac: Regular rhythm. S1 and S2 are normal. PMI is nondisplaced. There is a soft systolic ejection murmur. Carotids are brisk without bruits. JVP is less than 10 cm. Abdomen: Soft and nontender. There are no pulsatile masses or bruits. No liver enlargement. Bowel sounds are active. Extremities: Trace edema. Pulses are intact and symmetrical. EKG performed yesterday in primary care shows sinus tachycardia and is unchanged. Recent labs were reviewed. Renal function is normal. TSH was normal. CBC is normal. Electronically Signed: Lang Salmeron MD April 23, 2018 4:02 PM CC: JANUARY Navarrete CNOV Observed: 04/23/2018 Status: COMPLETED Source: [place] 10:30 AM [facility] REPOSITORY Office Visit (CAWSTR) ELISA JAMISON ([id number]) 1960 F Date Time Provider Department 04/23/18 10:30 AM LANG SALMERONWSTR During your visit today, we recorded the following information about you: Pulse Respiration Blood pressure Weight 96/minute 20/minute 148/84 102.2 kg Height 1.626 m Lang Salmeron MD 04/23/2018 5:21 PM Signed PERTINENT CARDIAC HISTORY Atrial fib - PAF, ablation 2014, declines warfarin HTN HL Tobaccoism ADHERENCE TO GUIDELINES MER-I or ARB for HF with prior LVEF<40 (NQF 0081) - N/A ASA or Plavix for ASHD (NQF 0067) - N/A Beta delbert for ASHD with prior ME or prior LVEF<40 (NQF 0070) - N/A Beta delbert for HF with prior LVEF<40 (NQF 0083) - N/A MER-I or ARB for ASHD with DM or prior LVEF<40 (NQF 0066) - N/A Statin therapy for ASHD or FHL or DM - N/A BMI documented and plan if >25 (NQF 0421) - lifestyle recommendation form Tobacco use screening and referral (NQF 0028) - lifestyle recommendation form Recommendation for whole food, plant based diet - lifestyle recommendation form CLINICAL IMPRESSION/PLAN: Elisa Jamison has had considerable weight gain. Her blood pressure is not well controlled. She clearly will not tolerate an MER inhibitor. I recommend that she increase metoprolol to 50 milligrams twice daily and follow her vital signs closely over the next few days. I will add additional medication as necessary, although we'll avoid ARBs and Mer inhibitors. She's not having any symptoms of ischemia. There is no evidence of decompensation of heart function, although we may need to update her echocardiogram. She's had no sensation of irregular heart rhythm and I do not believe she has had any more atrial fibrillation. Tentatively, I will see her in 6 months or as needed. Written and verbal health teaching given to patient, patient verbalizes understanding and agrees with treatment plan. DIAGNOSIS FOR VISIT: Hypertension Tachycardia HISTORY OF PRESENT ILLNESS Elisa Jamison returns for problem follow-up visit. Recently, her blood pressure has been elevated. A series of medications have been tried. She has had considerable weight gain and some edema. She was unable to tolerate losartan due to angioedema. Amlodipine caused peripheral edema. Most recently she was started on a beta delbert at low dose. She has not been wearing her oxygen at night. She reports that sleep study is still pending. She has refused warfarin. She denies chest pain. She's had diffuse edema. She denies syncope, TIAs, amaurosis and claudication. She has been aware that her heart rate has been elevated. ALLERGIES: ALLERGIES No Known Allergies CURRENT OUTPATIENT MEDICATIONS: Levothyroxine 25 mcg cap Take by mouth once daily. venlafaxine ER (EFFEXOR XR) 150 mg 24 hr capsule Take 150 mg by mouth once daily. metoprolol succinate 25 mg CSpX Take by mouth once daily. furosemide (LASIX) 20 mg tablet Take 20 mg by mouth once daily. rosuvastatin (CRESTOR) 10 mg tablet Take 5 mg by mouth once daily. potassium chloride ER (KLOR-CON M20) 20 mEq tablet Take 1 tablet by mouth three times daily. aspirin, enteric coated (ADULT LOW DOSE ASPIRIN) 81 mg EC tablet Take 1 tablet by mouth once daily. Omeprazole (PRILOSEC) 40 mg capsule Take 1 capsule by mouth once daily. ALPRAZolam (XANAX) 1 mg tablet Take 0.5 tablets by mouth at bedtime as needed. Varenicline (CHANTIX STARTING MONTH BOX) 0.5 mg (11)- 1 mg (42) tablet Take one 0.5mg tablet once daily for 3 days, increase to one 0.5mg tablet twice daily for 3 days, increase to one 1mg tablet twice daily. escitalopram oxalate (LEXAPRO) 20 mg tablet Take 1 tablet by mouth once daily. oxybutynin ER (DITROPAN XL) 10 mg 24 hr tablet Take 10 mg by mouth once daily. clonazePAM (KLONOPIN) 2 mg tablet Take 1 tablet by mouth twice daily as needed. PHYSICAL EXAMINATION: VITAL SIGNS: BP 148/84 Pulse 96 Resp 20 Ht 5' 4 (1.63m) Wt 225 lb 6.4 oz (102.2kg) BMI 38.67 kg/(m2). Chest: Clear to auscultation. Trachea is midline. Air entry is equal. Cardiac: Regular rhythm. S1 and S2 are normal. PMI is nondisplaced. There is a soft systolic ejection murmur. Carotids are brisk without bruits. JVP is less than 10 cm. Abdomen: Soft and nontender. There are no pulsatile masses or bruits. No liver enlargement. Bowel sounds are active. Extremities: Trace edema. Pulses are intact and symmetrical. EKG performed yesterday in primary care shows sinus tachycardia and is unchanged. Recent labs were reviewed. Renal function is normal. TSH was normal. CBC is normal. Electronically Signed: Lang Salmeron MD April 23, 2018 4:02 PM CC: JANUARY Navarrete MD 04/23/2018 4:03 PM Signed LIFESTYLE CHANGE A healthy lifestyle is the most important component of your overall treatment plan. Please give serious thought to the following areas and commit to making parts counterman changes. EAT A WHOLE FOOD, PLANT BASED DIET The nutrition your body gets is more important than the medicine you take. What matters most is the overall way you eat. We encourage you to minimize the use of animal products (which include dairy and all meats except fatty fish) and use whole, unprocessed plant foods to provide your protein, vitamins and other nutrients. We have a lot of information to share with you on this topic. This is not a diet. It is a way of life that you will keep with you. EXERCISE REGULARLY It is not important to spend hours in the gym, lifting weights and perspiring heavily. A total of 2-3 hours per week of aerobic (causing you to be moderately short of breath) exercise is sufficient to improve your health. Talk to us before you begin a new exercise program, if you have heart disease or experience shortness of breath or chest pain. REDUCE STRESS Chronic emotional and physical stress leads to disease. Ways of reducing stress include meditation, visualization, prayer, yoga and other forms of relaxation therapy. Consistency is the cespedes. Find a technique that works for you and do it every day. CULTIVATE RELATIONSHIPS Loneliness and isolation have a major negative impact on health. Seek out others who can love, care for and nurture you. Avoid hurtful relationships. MAINTAIN IDEAL BODY WEIGHT The best way to do this is to do all the things above. Our bodies naturally find the right weight if we keep moving and feed ourselves the right food. If your BMI is greater than 25, we strongly recommend a referral to a weight management program. Please speak to us or your family physician about available programs. AVOID NICOTINE IN ALL FORMS This includes all tobacco products, whether chewed, smoked, vaped, or rubbed on the skin. Smoking cessation programs, which can make use of tobacco substitutes, medications to suppress cravings and behavior management, are available. Please contact your family physician about programs in your area. Referring Provider: SELF [200] Allergies As of Date: 04/23/2018 (No Known Allergies) Date Reviewed: 04/23/2018 Reviewed by: Aline Hope RN - Fully Assessed Reason for Visit: Established Patient [175] Cmt: HTN Primary Visit Diagnosis:Essential hypertension [I10] Other Visit Diagnosis:Tachycardia [R00.0] Order(s):metoprolol tartrate, short acting, (LOPRESSOR) 50 mg tabletTake 1 tablet by mouth twice daily.Disp: 60 tabletRfl: 3 Prescriptions as of 04/23/2018 Sig: LEVOTHYROXINE 25 MCG CAPSULE Take by mouth once daily. VENLAFAXINE ER 150 MG CAPSULE* Take 150 mg by mouth once harini* FUROSEMIDE 20 MG TABLET Take 20 mg by mouth once char* ROSUVASTATIN 10 MG TABLET Take 5 mg by mouth once daily. POTASSIUM CHLORIDE ER 20 MEQ * Take 1 tablet by mouth three * Patient taking differently: Take 20 mEq by mouth four didi* ASPIRIN 81 MG TABLET,DELAYED * Take 1 tablet by mouth once d* OMEPRAZOLE 40 MG CAPSULE,FARNAZ* Take 1 capsule by mouth once * ALPRAZOLAM 1 MG TABLET Take 0.5 tablets by mouth at * METOPROLOL TARTRATE 50 MG TAB* Take 1 tablet by mouth twice * VARENICLINE 0.5 MG (11)-1 MG * Take one 0.5mg tablet once da* Patient not taking: Reported on 04/23/2018 ESCITALOPRAM 20 MG TABLET Take 1 tablet by mouth once d* Patient not taking: Reported on 04/23/2018 OXYBUTYNIN CHLORIDE ER 10 MG * Take 10 mg by mouth once char* CLONAZEPAM 2 MG TABLET Take 1 tablet by mouth twice * Problem List As Of Date 04/23/2018 Noted Resolved Atrial fibrillation, rapid (HCC) [I48.91] INVALID FOR* Hypertension [I10] INVALID FOR* Tobacco abuse [Z72.0] INVALID FOR* Paroxysmal atrial fibrillation (HCC) [I48.0] INVALID FOR* Other instructions from your clinician: LIFESTYLE CHANGE A healthy lifestyle is the most important component of your overall treatment plan. Please give serious thought to the following areas and commit to making retirement changes. EAT A WHOLE FOOD, PLANT BASED DIET The nutrition your body gets is more important than the medicine you take. What matters most is the overall way you eat. We encourage you to minimize the use of animal products (which include dairy and all meats except fatty fish) and use whole, unprocessed plant foods to provide your protein, vitamins and other nutrients. We have a lot of information to share with you on this topic. This is not a diet. It is a way of life that you will keep with you. EXERCISE REGULARLY It is not important to spend hours in the gym, lifting weights and perspiring heavily. A total of 2-3 hours per week of aerobic (causing you to be moderately short of breath) exercise is sufficient to improve your health. Talk to us before you begin a new exercise program, if you have heart disease or experience shortness of breath or chest pain. REDUCE STRESS Chronic emotional and physical stress leads to disease. Ways of reducing stress include meditation, visualization, prayer, yoga and other forms of relaxation therapy. Consistency is the cespedes. Find a technique that works for you and do it every day. CULTIVATE RELATIONSHIPS Loneliness and isolation have a major negative impact on health. Seek out others who can love, care for and nurture you. Avoid hurtful relationships. MAINTAIN IDEAL BODY WEIGHT The best way to do this is to do all the things above. Our bodies naturally find the right weight if we keep moving and feed ourselves the right food. If your BMI is greater than 25, we strongly recommend a referral to a weight management program. Please speak to us or your family physician about available programs. AVOID NICOTINE IN ALL FORMS This includes all tobacco products, whether chewed, smoked, vaped, or rubbed on the skin. Smoking cessation programs, which can make use of tobacco substitutes, medications to suppress cravings and behavior management, are available. Please contact your family physician about programs in your area. Prescriptions ordered this encounter Disp Refills Start End METOPROLOL TARTRATE 50 MG TABLET 60 t* 3 04/23/2018 Route: ORAL Sig: Take 1 tablet by mouth twice daily. Medications Discontinued During This Encounter hydrochlorothiazide (HYDRODIURIL, ES* 0 08/20/2015 04/23/2018 Class: Med Update Route: ORAL Sig: Take 1 tablet by mouth once daily. Patient not taking: Reported on 04/23/2018 Disc: Reason for discontinue is not on file. Cosign accepted by ROSSY HERNANDEZ MD[[id number]] on 08/28/2015 10:45 PM metoprolol succinate 25 mg CSpX 04/23/2018 Class: Historical Med Route: ORAL Sig: Take by mouth once daily. Disc: Reason for discontinue is not on file. Encounter Status:Closed by LANG SALMERON MD on 04/23/18 CBC Collected: 03/02/2018 Status: F Source: [place] 4:10 PM [facility] REPOSITORY TYPE CODE TESTS RESULT OUT OF RANGE REFERENCE UNITS LAB CBC(LOINC) CBC Result Comment: CBC-COMPLETE BLOOD COUNT LAB WBC(LOINC) 4.5 - 10.8 x 10EE3/UL WBC 8.1 LAB RBC(LOINC) 4.10 - x 10EE6/UL 5.30 RBC High 5.36 LAB HEMOGLOBIN(LOINC 12.0 - g/dl ) 16.0 High HEMOGLOBIN 16.5 LAB HEMATOCRIT(LOINC 34.0 - % ) 46.0 High HEMATOCRIT 48.2 LAB MCV(LOINC) 80 - 99 fl MCV 90 LAB MCH(LOINC) 27 - 33 pg MCH 31 LAB MCHC(LOINC) 32 - 36 X10 3 MCHC 34 LAB RDW/CV(LOINC) 12.0 - % 15.6 RDW/CV 14.4 LAB PLATELET(LOINC) 150 - 450 x10EE3/UL PLATELET 245 LAB MPV(LOINC) 6.6 - 10.5 fl MPV 8.1 Result Comment: AUTOMATED DIFFERENTIAL LAB NEUT %(LOINC) 46.0 - 76.0 % NEUT % 62.6 LAB LYMPH %(LOINC) 20.0 - 45.0 % LYMPH % 26.5 LAB MONOS %(LOINC) 0.0 - 10.0 % MONOS % 9.3 LAB EO %(LOINC) 0.0 - 7.0 % EO % 1.1 LAB BASO %(LOINC) 0.0 - 2.0 % BASO % 0.5 LAB Lymph #(LOINC) 0.80 - 2.80 x10EE3/U L Lymph # 2.20 LAB Neut #(LOINC) 1.50 - 7.10 x10EE3/U L Neut # 5.10 LAB [place] #(LOINC) 0.20 - 1.00 x10EE3/U L [place] # 0.80 LAB EO #(LOINC) 0.00 - 0.50 x10EE3/U L EO # 0.10 LAB Baso #(LOINC) 0.00 - 0.10 x10EE3/U L Baso # 0.00 LAB MANUAL DIFF(LOINC) MANUAL DIFF N/A LAB MORPHOLOGY([facility] ) MORPHOLOGY N/A Result Comment: {CD] Performed By: #### [id number] #### [facility],[address] [place] [address] BNP (B-TYPE NATRIURETIC Collected: 03/02/2018 Status: F [facility] 4:10 PM [facility] REPOSITORY TYPE CODE TESTS RESULT OUT OF RANGE REFERENCE UNITS LAB BNP(INC) 1 - 100 pg/ml BNP 31 Performed By: #### [id number] #### [place] [id number] CMP WITH EGFR Collected: 03/02/2018 Status: F Source: [facility] [place] 4:10 PM [facility] REPOSITORY TYPE CODE TESTS RESULT OUT OF RANGE REFERENCE UNITS LAB CMP with eGFR(LOINC) CMP with eGFR Result Comment: COMPREHENSIVE METABOLIC PANEL LAB SODIUM(LOINC) 136 - 145 mmol/l SODIUM 139 LAB POTASSIUM(LOINC) 3.5 - 5.1 mmol/L POTASSIUM 3.8 LAB CHLORIDE(LOINC) 98 - 107 mmol/L CHLORIDE 103 LAB CO2(LOINC) 21.0 - mmol/L 31.0 CO2 29.7 LAB GLUCOSE(LOINC) 74 - 106 mg/dl GLUCOSE 91 LAB BUN(LOINC) 6 - 20 mg/dl BUN 6 LAB CREATININE(LOINC) 0.6 - 1.2 mg/dl CREATININE 0.6 LAB AST/SGOT(LOINC) 13 - 39 U/L AST/SGOT 18 LAB ALK PHOS(LOINC) 38 - 126 U/L ALK PHOS 87 LAB CALCIUM(LOINC) 8.6 - mg/dl 10.2 CALCIUM 9.1 LAB TOTAL PROTEIN(LOINC) 6.4 - 8.3 g/dl TOTAL PROTEIN 7.1 LAB ALBUMIN(LOINC) 3.4 - 4.8 g/dL ALBUMIN 4.0 LAB GLOBULIN(LOINC) 1.5 - 3.8 G/DL GLOBULIN 3.1 LAB A/G RATIO(LOINC) 0.9 - 1.6 A/G RATIO 1.3 LAB TOTAL BILI(LOINC) 0.0 - 1.5 mg/dl TOTAL BILI 0.4 LAB B/C RATIO(LOINC) 0 - 30 ratio B/C RATIO 10 LAB ALT/SGPT(LOINC) 8 - 35 U/L ALT/SGPT 17 LAB ANION GAP(LOINC) 10 - 20 mmol/L ANION GAP 10 LAB AGE(LOINC) years AGE 57 LAB eGFR(LOINC) 60 - 999 ML/MINUTE eGFR >60 LAB eGFR(AA)(LOINC) 60 - 999 ML/MINUTE eGFR(AA) >60 Result Comment: ACCORDING TO THE NATIONAL KIDNEY DISEASE EDUCATION PROGRAM(NKDE), A NORMAL eGFR IS A VALUE GREATER THAN OR EQUAL TO 60 ML/MIN/1.73 SQ METERS. CHRONIC KIDNEY DISEASE: <60mL/MIN/1.73 SQ METERS KIDNEY FAILURE: <15mL/MIN/1.73 SQ METERS THIS TEST SHOULD ONLY BE USED FOR PATIENTS 18 YEARS OF AGE AND OLDER. Performed By: #### [id number] #### [facility],[address] [place] [address] T4-FREE (FREE Collected: 03/02/2018 Status: F Source: [facility] THYROXINE) 4:10 PM [facility] REPOSITORY TYPE CODE TESTS RESULT OUT OF RANGE REFERENCE UNITS LAB T4 0.61 - 1.12 ng/dl FREE(LOINC) Low T4 FREE 0.53 Result Comment: *SPECIMENS FROM PATIENTS WHO ARE UNDERGOING BIOTIN THERAPY AND/OR INGESTING BIOTIN SUPPLEMENTS MAY HAVE FALSE HIGH RESULTS. Performed By: #### [id number] #### [address] [address] TSH Collected: 03/02/2018 Status: F Source: [facility] 4:10 [facility] REPOSITORY TYPE CODE TESTS RESULT OUT OF RANGE REFERENCE UNITS LAB TSH(LOINC) 0.34 - 5.60 uIU/ml TSH 4.17 Performed By: #### [id number] #### [place] [address] HGB A1C Collected: 03/02/2018 Status: F Source: [facility] 4:10 [facility] REPOSITORY TYPE CODE TESTS RESULT OUT OF RANGE REFERENCE UNITS LAB HGB 4.4 - 6.4 % A1C(LOINC) HGB A1C 5.8 Result Comment: {HB] {A1] Performed By: #### [id number] #### [place] [address] T3, FREE Collected: 03/02/2018 Status: F Source: [facility] 4:[address] [place] [id number] REPOSITORY TYPE CODE TESTS RESULT OUT OF RANGE REFERENCE UNITS LAB T3, FREE(LOINC) T3, FREE Result Comment: _T3, FREE_ T3, FREE Reported: 03/05/2018 12:22 Status=F TEST RESULT FLAG RANGE UNITS T3, FREE 3.0 2.3-4.2 pg/mL 03/05/18.1233.Floresita.AMRR .3051-0 Test Performed by Corrine Sen [facility], [address] [place] [address] Kolby Horta M.D., Ph.D., Director of Laboratories , [id number] [id number] Performed By: #### [id number] #### [facility],[address] [place] [address] EMERGENCY REPORT Observed: 12/21/2017 Status: F Source: [facility] 7:43 AM [facility] EMERGENCY ROOM REPORT NAME ACCOUNT SEX AGE ADMIT DISCHARGE PT MED. RECORD# NUMBER DATE DATE TYPE YAQUELIN [id number] F 57 12/17/17 12/17/17 3 ELISA [place] [id number] ROOM: ER DATE OF : 1960 DICTATING PHYSICIAN: Jackson Rolon HISTORY OF PRESENT ILLNESS: The patient came in. She noticed 3 bumps on her upper lip, and then she started getting a rash or hives to her buttocks. She denied any throat tightness to me. She told the nurse she had throat tightness. She presents to the Emergency Department. PAST MEDICAL HISTORY: She has COPD. She is always short of breath, and this has not changed. She has a history of atrial fibrillation with a heart ablation and hypertension. SOCIAL HISTORY: She does continue to smoke. She denies alcohol use. REVIEW OF SYSTEMS: Ten systems were reviewed and were negative except as mentioned above. PHYSICAL EXAMINATION: She is an awake, alert and oriented female in no acute distress. She is afebrile. Blood pressure is 160/80, pulse 109, respirations 18, and pulse oximetry 97% on room air. Head is normocephalic, atraumatic. Eyes: Pupils are equal, round and reactive to light. Extraocular muscles are intact. Nares are patent. Throat has adequate oral moisture. Uvula is midline. Neck is supple without petechiae or rash. Heart without murmur. S1 equal to S2. No S3 or S4 appreciated. Lungs are clear to auscultation bilaterally. No rales, rhonchi or retractions. Abdomen is soft, nontender and nondistended. Skin is warm and dry. She does have a swollen lower lip. She has no swelling in her oropharynx. She does have hives on her gluteal area and on her legs. She has none on the back. She has some on her chest. Her lungs are clear. EMERGENCY DEPARTMENT COURSE AND TREATMENT: She was given Solu-Medrol, Zantac and Benadryl. We will write her for prednisone. Looking at her medication list, I think it could be Losartan causing this. It also could be the hydrochlorothiazide, but I think it is more likely the Losartan because she just started this about 3 months ago she stated. She also got off Augmentin a couple days ago. She will be discharged in stable condition. She will return for any problems or concerns. She will be referred to Dr. Chidi King for allergy testing. Page 1 of 2 ELISA JAMISON Emergency Room Report DIAGNOSIS: Allergic reaction with hives - cause not clear. Dictated By: Jackson Rolon DO 12/17/17 17:11 JOB #: [id number] Transcribed By: juarez 12/18/17 12:15 Electronically signed by: BRUNILDA Rolon D.O. 12/21/17 07:43 Page 2 of 2 ELISA JAMISON Emergency Room Report CNCO Observed: 10/16/2017 Status: COMPLETED Source: [place] 12:00 AM CLINIC OTHER CAMPUS REPOSITORY Letter Text [facility] Cardiology [address] [facility] [address] Dept: [phone] Dept Lang Salmeron MD October 16, 2017 Elisa Jamison [address] [place] [address] 1960 Dear Elisa Jamison, We missed seeing you for your scheduled appointment with Dr. Salmeron on 10/09/17. Our goal is to offer the best possible care to our patients, so we are concerned when you are unable to keep a scheduled appointment. Please call us at [phone] so that we can reschedule your appointment for a day and time that will work for you. If you find it difficult to keep your appointment, please notify our office at least 24 hours in advance so that we may reschedule your appointment. We are glad that you have chosen [facility] for your cardiovascular needs and hope to continue serving you in the future. Sincerely, Lang Salmeron MD (Signed electronically to expedite mailing) EMERGENCY DEPARTMENT Observed: 09/06/2017 Status: F [facility] 8:50 AM [facility] EMERGENCY DEPARTMENT SUMMARY NAME NUMBER SEX AGE ADMIT DISC TYPE MED.RECORD# YAQUELIN ELISA Cortes [id number] F 57 08/31/17 08/31/17 Janette [id number] ROOM:ER- DATE OF :1960 PHYSICIAN NO.:[id number] PHYSICIAN NAME:BRUNILDA Naylor M.D. PHYSICIAN:CATHY WALKER CHIEF COMPLAINT: Back pain. HISTORY OF PRESENT ILLNESS: The patient has a history of chronic recurring back pain. She has known disc problems. She does see Dr. Simons for chronic pain, but does not get regular pain medications. She states recently her son, who is a low functioning Down's patient, was in the hospital at [facility] and was getting a workup there. She was staying with him and was sleeping on the couch and chair, and since then that has caused increasing pain to her back. The last several days she states it is to the point that she is having trouble getting around and is having ongoing pain, so presents here. She has not had any recent injuries, although she states that she did fall a couple of weeks ago. She complains of diffuse pain to her low back, worse with movement radiating slightly into the extremities. She seems to be urinating a little more frequently, but is not having incontinence. She states that it is not a UTI. PAST MEDICAL HISTORY: Significant for hypertensive, chronic back pain. MEDICATIONS: Per med rec list. ALLERGIES: She has no allergies. PAST SURGICAL HISTORY: She has had previous cholecystectomy and hysterectomy. SOCIAL HISTORY: The patient lives at home with her adult disabled son. She does smoke. She does not drink alcohol. REVIEW OF SYSTEMS: As mentioned above. PHYSICAL EXAMINATION: This is a pleasant 57-year-old female alert, appropriate, she does ambulate, thought slowly. Her skin is warm and dry. She has some icjb-vb-abpcutyi tenderness diffusely along the low back area. No mid or upper back tenderness. She does have normal deep tendon reflexes to her knees and ankles. There is no abdominal tenderness. She has no focal weaknesses. She has good peripheral pulses. Good capillary refill. Vital signs: Blood pressure 161/109, pulse 88, respirations 18, and temperature 97.8. Her O2 saturation is 97%. She states normally her blood pressure is better controlled, but with her pain that it tends to run higher. EMERGENCY DEPARTMENT COURSE AND TREATMENT/PLAN/DISPOSITION: I discussed management with her. I did an OARRS report on her, which shows no open pain medications. She was given an injection of Dilaudid, a small number of Percocet to take until she can follow up with her family physician or chronic pain physician. DIAGNOSIS: Chronic back pain exacerbation. D: Rafita Naylor MD TD: 14:57 JOB #: [id number] Electronically signed by: BRUNILDA Naylor M.D. 09/06/17 08:48 Transcribed by: am 09/01/2017 11:56 ELECTRONICALLY SIGNED BY: BRUNILDA Naylor M.D. 09/06/17 08:48 ALLERGIES ALLERGIES DATE TYPE / CODE NAME / CODE REACTION SEVERITY SOURCE 08/06/2018 Drug No Known Unknown [place] Allergy/782430326(S Allergies/F0019 [facility] [place]) [address](RXNORM) Hospital Repository Drug NO KNOWN [place] Class/338336677(SNO ALLERGIES Clinic Main [facility] CT) [place] Repository Drug [place]ARTAN/651619 Moderate Aniceto Pome[place] Allergy/071262914(S 21(RXNORM) ([facility]) Modifier) Hospital (Qualifier Repository Value) Miscellaneous No Known Moderate An[place]eto [place] Allergy/207813789(S Allergies ([facility]) Modifier) Hospital (Qualifier Repository Value) ENCOUNTERS ENCOUNTERS ADMIT/DISCHARGE ACCOUNT ADMITTING ENCOUNTER LOCATION SOURCE NUMBER CLASS 09/01/2018/09/01/19 [id number] Enrrique SAMSON [place] [address] [facility] Repository 08/27/2018 [id number] Ambulatory [facility] ing:PSN Repository 08/27/2018/08/27/19 [id number] Enrrique SAMSON [place] 19 [facility] Repository 08/26/2018/08/26/19 [id number] LAWRENCE SALMERON Ambulatory [place] 19 [facility] Repository 08/20/2018/08/23/19 [id number] Ambulatory [address] Repository 08/06/2018/08/06/20 [id number] Ambulatory BMSBuilding:B [facility] 18 [facility] Repository 07/30/2018/07/30/20 [id number] MAL[place], Ambulatory An[place]eto [place] 18 [facility] Repository 07/30/2018 [id number] Ambulatory BMSBuilding:Cindy Monson MS.[facility] Repository 07/29/2018 [id number] Ambulatory BMSBuilding:W [facility] Repository 07/27/2018/07/27/20 [id number] MAL[place], Ambulatory Aniceto [place] 18 [facility] Repository 07/27/2018 [id number] Ambulatory [facility] Hospital ing:PSN Repository 07/23/2018/07/23/20 [id number] MAL[place], Ambulatory [place] 18 [facility] Repository 07/22/2018/07/22/[id number] [facility]A Emergency BuildinR [place] [address] [place] mathisom: ERBed: [facility] Repository 06/28/2018/06/28/20 [id number] [place], Ambulatory An[place] 18 [facility] Repository 06/27/2018/06/27/20 [id number] [place], Emergency BuildinR [address] oom: ERBed: [facility] Repository 04/28/2018 [id number] [place], Ambulatory Aniceto Pomerene [facility] Repository 04/23/2018/04/26/20 [id number] Ambulatory [address] Repository 03/02/2018/03/02/20 [id number] [place], Ambulatory Aniceto [place] 18 [facility] Repository 01/06/2018/01/07/20 [id number] [place] Ambulatory Aniceto [place] 18 [facility] Repository 12/17/2017/12/18/[id number] [facility]A Emergency [facility] [place] mathisom: ERBed: [facility] Repository 08/31/2017/08/31/[id number] RAFITA NAYLOR Emergency BuildinR Aniceto Rene C oom: ERBed: [facility] Repository PAYERS PAYERS ENCOUNTER GUARANTOR PAYER SUBSCRIBER SOURCE 09/01/2018 ELISA D Primary EDD MCELROYDOB: Aniceto Pomerene MCELROYDOB: Insurance:ANTHEMPolicy [id number] [facility] Number: [address] [place] [address] RTE [id number] [place] [address], Repository [address] [place] [address], Date:Plan Name:[facility] [address] [place] [address]Oxw: () 09/01/2018 Secondary ELISA D Aniceto P[place] Insurance:AETNAPolicy MCELROYDOB: [facility] Number: [id number] [facility] [id number] [address] Repository Date:Plan Name:PI [address] [place] [address], [place] [address] 08/27/2018 ELISA D Primary EDD C [place] [id number] SR Insurance:ANTHEMPolicy MCELROYDOB: [address], Number: [id number] [place] [address]Deo: [id number] Repository Date:3866-02-39KJ [address]OX () 143799XJRJGMF, [place] [address]NC: 08/27/2018 Secondary NOT GIVENUNK [place] Insurance:SELF PAY [facility] Number: Effective Repository Date:2018-08-06 08/27/2018 ELISA D Primary Insurance:BLUE EDD MCELROYDOB: Aniceto Mcdanielserene MCELROYDOB: [address] [id number] [facility] SR Number: [address] [place] [address], Repository [address] [place] [address], [id number] Ut [id number] [place] [address]Swp: Date:Plan Name:B2P [address]FDFTMM, [place] () [id number]: 08/26/2018 ELISA D Primary Insurance:BLUE EDD MCELROYDOB: Aniceto Pomerene MCELROYDOB: [address] [id number] [facility] [address] SR Number: [place], Repository [place], [id number] [place] [id number] [place] [id number]: Date:Plan Name:B2P [address]WWBEVGU, [place] () [id number]: 08/06/2018 ELISA Cortes Primary EDD C [place] [id number] SR Insurance:ANTHEMPolicy MCELROYDOB: [address], Number: [id number] Hospital [place] [address]Hvk: [id number] Repository Date:8235-23-85TH BOX () 509318EBFTPQIJESSICA GODOY [address]AB: 08/06/2018 Secondary NOT GIVENUNK [place] Insurance:SELF PAY [facility] Number: Effective Repository Date:2018-08-05 07/30/2018 ELISA Cortes Primary Insurance:BLUE EDD MCELROYDOB: Aniceto Rene MCELROYDOB: [address] [id number] [facility] [address] SR Number: [place], Repository [place], [id number] [place] [id number] [place] [address]Jge: Date:Plan Name:B2P [address]BLIULSKJESSICA GODOY () [id number]: 07/30/2018 ELISA Cortes Primary EDD C [place] [id number] [address] Insurance:ANTHEMPolicy MCELROYDOB: [address], Number: [id number] [place] [address]Seb: [id number] Repository Date:6988-48-28GE BOX () 347987DPOKVIKJESSICA GODOY [address]YE: 07/30/2018 Secondary NOT GIVENUNK [place] Insurance:SELF PAY [facility] Number: Effective Repository Date:2018-07-29 07/29/2018 ELISA D Primary EDD C [place] [id number] SR Insurance:ANTHEMPolicy MCELROYDOB: [address], Number: [id number] [place] [address]Jul: [id number] Repository Date:7284-86-90JR BOX () [place], [place] [address]QT: 07/29/2018 Secondary NOT GIVENUNK [place] Insurance:SELF PAY [facility] Number: Effective Repository Date:2018-07-29 07/27/2018 ELISA D Primary Insurance:BLUE EDD MCELROYDOB: Aniceto Rene MCELROYDOB: [address] [id number] [facility] [address] SR Number: [address] [place] [address], Repository [address] [place], [place] [id number] [place] [id number] [place] [address]Xzz: Date:Plan Name:B2P [address]YWGNKAN, [place] () [id number]: 07/27/2018 ELISA D Primary EDD C [place] [id number] [address] Insurance:ANTHEMPolicy MCELROYDOB: [address], Number: [id number] [place] [address]Zkw: [id number] Repository Date:7274-89-04SY BOX () 672096ZMHRYDI, [place] [address]MW: 07/27/2018 Secondary NOT GIVENUNK [place] Insurance:SELF PAY [facility] Number: Effective Repository Date:2018-07-23 07/23/2018 ELISA D Primary Insurance:BLUE EDD MCELROYDOB: Aniceto TSANGOYDOB: [address] [id number] [facility] [address] SR Number: [address] [place] [address], Repository [address] [place] [address], [id number] [place] [id number] [place] [address]Jtr: Date:Plan Name:B2P [address]FTYYCHQ [place] () [id number]: 07/22/2018 ELISA Cortes Primary EDD MCELROYDOB: Anicetoroni Mcdanielsjeronimo MCELROYDOB: Insurance:ANTHEM ELIJAH [id number] [facility] [address], Repository [address] [place] [address], Number: [place] [id number] Ut [address]Vgu: [id number] Date:Plan Name:B2P O () [address]HIYGJGQ [place] [id number]: 07/22/2018 Secondary EDD MCELROYDOB: Aniceto Bajwane Insurance:ELIJAH CROSS [id number], Repository Number: [place] [id number] Date:Plan Name:B2P [address]RNCFDXI [place] [id number]: 06/28/2018 ELISA Cortes Primary Insurance:BLUE EDD MCELROYDOB: Aniceto Arslanjeronimo MCELROYDOB: [address] [id number] [facility] [address] RTE Number: [address] [place] [address], Repository [address] [place] [address], [id number] Ut [id number] Ut [address]Vpi: Date:Plan Name:B2P [address]HPQJWBH [place] () [id number]: 06/27/2018 ELISA Cortes Primary EDD MCELROYDOB: Aniceto Bajwane MCELROYDOB: Insurance:ANTHEM BLUE [id number] [facility] [address], Repository [address] [place] [address], Number: [place] [id number] [place] [address]Ahf: [id number] Date:Plan Name:B2P O () [address]997WDIWSVY, [place] [id number]: 06/27/2018 Secondary EDD MCELROYDOB: Aniceto Pomerene Insurance:BLUE CROSS [id number] [address], Repository Number: [place] [id number] Date:Plan Name:B2P [address]38OHZQPJP, [place] [id number]: 04/28/2018 ELISA Cortes Primary Insurance:BLUE EDD MCELROYDOB: Aniceto Bajwane MCELROYDOB: [address] [id number] [facility] [address] RT Number: [address] [place] [address], [address], [id number] Ut [id number] Ut [address]Nra: Date:Plan Name:B2P [address]BETYXTX, [place] () [id number]: 03/02/2018 ELISA Cortes Primary Insurance:BLUE EDD MCELROYDOB: Aniceto Rene MCELROYDOB: [address] [facility] [id number] [facility] [address] RT Number: [address] [place] [address], Repository [address] [place] [address], [id number] Ut [id number] [place] [id number]: Date:Plan Name:B2P [address]BHDCPNB, [place] () [id number]: 01/06/2018 ELISA Cortes Primary EDD MCELROYDOB: Aniceto Pomminine MCESHAKEELOYDOB: Insurance:ANTHEM HIDDENITE [id number] [facility] [address], Repository [address] [place] [address] Number: [place] [id number] Oh [id number]: Date:Plan Name:B2 () 12/17/2017 ELISA Cortes Primary Insurance:BLUE EDD MCELROYDOB: Aniceto Mcdanielsjeronimo JAMISONDOB: [address] [id number] [facility] [address] RT Number: [address] [place] [address], Repository [address] [place] [address], [id number] [place] [id number] Oh Date:Plan Name:B2P O [id number]: [address]FBMEZVF, [place] [id number]: [phone] () [phone] 08/31/2017 ELISA Cortes Primary Insurance:BLUE EDD MCELROYDOB: Anicetoroni Mcdanielsjeronimo JAMISONDOB: [address] [facility] [id number] [facility] [address] RT Number: [place], Repository [address] [place] [address], [id number] [place] [id number] Oh Date:Plan Name:B2P O [id number]: [address]SOFCHNT, [place] [id number]: [phone] () [phone]
--- OUTSIDE RECORDS SUMMARY | 2018-10-28 21:31 | XMS RPT_ITS | Clinical Summary ---
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 Alejandrina Mild chronic mild (FEV1 (SNOMED 05/01 05/01 [place] obstructive 80-100%) CT) IT SYSTEMS MANAGER pulmonary disease Hypersomnia 98626769 Active Alejandrina Hypersomnia (SNOMED 05/01 05/[address]) IT SYSTEMS MANAGER Tobacco Abuse 08691641 Active Jonathan W Tobacco (SNOMED 03/13 03/[address]) syndrome Dyspnea/short 337705180 Active Jonathan W Dyspnea ness of (SNOMED 03/13 03/[address]) Hypoxemia 921347209 Active Jonathan W Hypoxemia (SNOMED 03/13 03/[address]) Joint pain 92077499 Active Machelle D Joint pain (SNOMED 12/04 12/04 Maud PA-C CT) Insomnia, 157979944 Active Machelle D Insomnia chronic (SNOMED 12/04 12/04 Maud PA-C CT) Overactive 967698262 Active Machelle D Bladder muscle bladder (SNOMED 12/04 12/04 Maud PA-C dysfunction - CT) overactive Hiatal hernia 73578368 Active Machelle D Hiatal hernia (SNOMED 12/04 12/04 Maud PA-C CT) GERD 301104810 Active Machelle D Gastroesophageal (SNOMED 12/04 12/04 Maud PA-C reflux disease CT) Hypertension 0222299 7060/0 Active Machelle Cortes Benign essential benign (SNOMED 12/04 12/04 [facility]-C hypertension essential CT) Depression / 391724482 Active Machelle Cortes Mixed anxiety anxiety (SNOMED 12/04 12/04 Maud PA-C and depressive CT) disorder Medications Medication Instructions Start Stop Generic Name ND Provider Date Date BEVESPI AEROSPHERE 2 puffs twice GLYCOPYRROLATE-FORM 08110899767 Alejandrina 9-4.8 MCG/ACT AERO daily 05/01 OTEROL [place] IT SYSTEMS MANAGER CLONAZEPAM 2 MG TABS 1 tablet by CLONAZEPAM 82363149101 Machelle D mouth at 12/04 [facility] bedtime CLONAZEPAM 2 MG TABS 1 tablet by 2016/ CLONAZEPAM 59497721184 Kadie L mouth at 12/04 02/11 [place] bedtime OXYBUTYNIN CHLORIDE 1 tablet by OXYBUTYNIN CHLORIDE 48658384850 Machelle D ER 10 MG [id number] mouth daily 12/04 [facility] OXYBUTYNIN CHLORIDE 1 tablet by 2016/ OXYBUTYNIN CHLORIDE 40526698868 Kadie L ER 10 MG [id number] mouth daily 12/04 02/11 [place] PANTOPRAZOLE SODIUM 2 tablets by PANTOPRAZOLE SODIUM 59551001409 Machelle D 40 MG TBEC mouth daily 12/04 [facility] PANTOPRAZOLE SODIUM 2 tablets by 2016/ PANTOPRAZOLE SODIUM 45001841008 Kadie L 40 MG TBEC mouth daily 12/04 02/11 [place] ULTRAM 50 MG TABS One tab every TRAMADOL HCL 80668641731 Kadie L 4-6 hrs as 10/02 [place] needed ULTRAM 50 MG TABS One tab every 2017/ TRAMADOL HCL 27590276425 Marianela M 4-6 hrs as 10/02 03/13 [facility] needed POTASSIUM CHLORIDE 2 tablets by POTASSIUM CHLORIDE 67620213105 Machelle D ER 20 MEQ CR-TABS mouth daily 12/04 [facility] HYDROCHLOROTHIAZIDE 1 tablet by HYDROCHLOROTHIAZIDE 29710449849 Machelle D 50 MG TABS mouth daily 12/04 [facility] PA-C ALPRAZOLAM 1 MG TABS One tab three ALPRAZOLAM 58858993319 Kadie L times daily 12/16 [place] as needed ESCITALOPRAM OXALATE 1 tablet by ESCITALOPRAM 83054795079 Kadie L 20 MG TABS mouth daily 05/01 OXALATE [place] VALIUM 2 MG TABS One tab 30 DIAZEPAM 02921968948 Kadie L minutes prior 02/11 [place] to MRI MEDROL 4 MG TABS One tab 6 METHYLPREDNISOLONE 34454818640 Kadie L days 02/06 [place] TRIAMCINOLONE One TRIAMCINOLONE 06500950521 Kadie L ACETONIDE 0.025 % application 02/06 ACETONIDE [place] CREA four times daily ASPIRIN 81 MG TBEC One tab daily ASPIRIN 41178554382 Kadie L 02/06 PERCOCET 5-325 MG One tab every OXYCODONE-ACETAMINO 33388826268 Kadie L TABS 6 hrs as 01/30 PHEN [place] needed ROSUVASTATIN CALCIUM 1.5 tabs ROSUVASTATIN 25568613522 Kadie L 5 MG TABS daily 02/03 CALCIUM [place] HYDROCHLOROTHIAZIDE One tab daily HYDROCHLOROTHIAZIDE 80290170058 Kadie L 50 MG TABS 08/17 [place] ALPRAZOLAM 1 MG TABS 1 tablet as ALPRAZOLAM 97941741733 Machelle D needed for 12/04 [place] PA-C anxiety ESCITALOPRAM OXALATE 1 tablet by ESCITALOPRAM 49104708155 Machelle D 20 MG TABS mouth daily 12/04 OXALATE [facility] PA-C at bedtime SOTALOL HCL 120 MG 1 tablet by SOTALOL HCL 83518456104 Machelle D TABS mouth daily 12/04 [facility] PA-C SOTALOL HCL 120 MG 1 tablet by SOTALOL HCL 39980416114 Kadie L TABS mouth daily 12/04 02/11 [place] Medications Administered No information available. Allergies, Adverse Reactions, Alerts Observed no known allergies at Results Date Name Value Unit Range Flag Description Office Visit: hypoxemia and dyspnea MEDS REVIEW Done Documentation of current medications (procedure) SMOK ADVICE yes Smoking cessation education (procedure) ORALTOBACUSE Never Tobacco smoking status NHIS SMOK STATUS Current every day smoker Tobacco use [facility] Plan of Care Type Date Detail Appointment 10:30 AM Jonathan Cummings, [address], [address], [place], [address] Appointment 02:00 PM Jonathan Cummings, [address], [address], [place], [address] Referral Surgery Referral Pending order Complete sleep workup (PSG,CPAP as indicated) & Follow up Pending order BWA Pending order Follow Up Appt 3 months Pending order Pulmonary stress testing; simple (eg, 6-minute walk) Pending order Nocturnal Oximetry Pending order Pulmonary Function Test - complete Pending order Pulmonary stress testing; simple (eg, 6-minute walk) Pending order Follow Up Appt 3 months Pending order *CRP - C-Reative Protein Pending order *PAT Pending order *Sedimentation Rate (ESR) Pending order *RA Rheumatoid Factor - Quaint Procedures Code Procedure Name Date Entry Date CPT-37157 Inhaler Training Vital Signs Date Name Value Unit Description BMI (Body Mass Index) 32.44 kg/m2 Body Mass Index [Ratio] Body Temperature 99.4 [degF] temperature E&M BP Diastolic 74 mm[Hg] blood pressure, diastolic - 8462-4 BP Systolic 146 mm[Hg] blood pressure, systolic - 8480-6 Heart Rate 89 /min pulse rate E&M - 8867-4 Height 64.5 [in_us] height E&M - 8302-2 Respiratory Rate 18 /min respiratory rate E&M - 9279-1 Weight Measured 192 [lb_av] weight E&M - 3141-9 BSA (Body Surface Area) 1.90 body surface area
--- OUTSIDE RECORDS SUMMARY | 2018-10-28 21:31 | XMS RPT_ITS | Clinical Summary ---
:1960 Author Organization [facility], [facility] Address [facility] [place] [address] Phone Care Team Providers Name Role Phone Mary Carmen Palm LPN Unavailable Unavailable Conditions or Problems Problem Name Problem Onset Status Entry Provider Comment Standard Annotate Code Date Date Description COPD stage 1 [id number] Active Alejandrina Mild chronic mild (FEV1 (SNOMED 05/01 05/01 [place] obstructive 80-100%) CT) SPRAY [employer]ER pulmonary disease Hypersomnia 56906018 Active Alejandrina Hypersomnia (SNOMED 05/01 05/[address]) [employer]ER Tobacco Abuse 64261710 Active Jonathan W Tobacco (SNOMED 03/13 03/[address]) syndrome Dyspnea/short 891573047 Active Jonathan W Dyspnea ness of (SNOMED 03/13 03/[address]) Hypoxemia 224648518 Active Jonathan W Hypoxemia (SNOMED 03/13 03/[address]) Joint pain 80279254 Active Machelle D Joint pain (SNOMED 12/04 12/04 [place] PA-C CT) Insomnia, 361995453 Active Machelle D Insomnia chronic (SNOMED 12/04 12/[address] [place] [address]-C CT) Overactive 715889351 Active Machelle D Bladder muscle bladder (SNOMED 12/04 12/04 [place] PA-C dysfunction - CT) overactive Hiatal hernia 82359069 Active Machelle D Hiatal hernia (SNOMED 12/04 12/04 [place] PA-C CT) GERD 791667394 Active Machelle D Gastroesophageal (SNOMED 12/04 12/04 [place] PA-C reflux disease CT) Hypertension 8363089 8757/0 Active Machelle Cortes Benign essential benign (SNOMED 12/04 12/04 [place] PA-C hypertension essential CT) Depression / 237387095 Active Machelle Cortes Mixed anxiety anxiety (SNOMED 12/04 12/04 [place] PA-C and depressive CT) disorder Medications Medication Instructions Start Stop Generic Name [facility] Provider Date Date BEVESPI AEROSPHERE 2 puffs twice GLYCOPYRROLATE-FORM 91349214884 Alejandrina 9-4.8 MCG/ACT AERO daily 05/01 OTEROL S [place] [employer]AY [employer]EMENTER CLONAZEPAM 2 MG TABS 1 tablet by CLONAZEPAM 69590845262 Machelle D mouth at 12/04 [facility] bedtime CLONAZEPAM 2 MG TABS 1 tablet by 2016/ CLONAZEPAM 44864527662 Kadie L mouth at 12/04 02/11 [place] bedtime OXYBUTYNIN CHLORIDE 1 tablet by OXYBUTYNIN CHLORIDE 45491976754 Machelle D ER 10 MG [id number] mouth daily 12/04 [facility] OXYBUTYNIN CHLORIDE 1 tablet by 2016/ OXYBUTYNIN CHLORIDE 31058008825 Kadie L ER 10 MG [id number] mouth daily 12/04 02/11 [place] PANTOPRAZOLE SODIUM 2 tablets by PANTOPRAZOLE SODIUM 89818721092 Machelle D 40 MG TBEC mouth daily 12/04 [facility] PANTOPRAZOLE SODIUM 2 tablets by 2016/ PANTOPRAZOLE SODIUM 38239036553 Kadie L 40 MG TBEC mouth daily 12/04 02/11 [place] ULTRAM 50 MG TABS One tab every TRAMADOL HCL 86650739303 Kadie L 4-6 hrs as 10/02 [place] needed ULTRAM 50 MG TABS One tab every 2016/ TRAMADOL HCL 65025008713 Marianela M 4-6 hrs as 10/02 03/13 [place] needed POTASSIUM CHLORIDE 2 tablets by POTASSIUM CHLORIDE 80555947312 Machelle D ER 20 MEQ CR-TABS mouth daily 12/04 [facility] HYDROCHLOROTHIAZIDE 1 tablet by HYDROCHLOROTHIAZIDE 25311732094 Machelle D 50 MG TABS mouth daily 12/04 [place] PA-C ALPRAZOLAM 1 MG TABS One tab three ALPRAZOLAM 62707058256 Kadie L times daily 12/16 [place] as needed ESCITALOPRAM OXALATE 1 tablet by ESCITALOPRAM 57027203803 Kadie L 20 MG TABS mouth daily 05/01 OXALATE [place] VALIUM 2 MG TABS One tab 30 DIAZEPAM 22253105523 Kadie L minutes prior 02/11 [place] to MRI MEDROL 4 MG TABS One tab 6 METHYLPREDNISOLONE 10824162863 Kadie L days 02/06 [place] TRIAMCINOLONE One TRIAMCINOLONE 08402688766 Kadie L ACETONIDE 0.025 % application 02/06 ACETONIDE [place] CREA four times daily ASPIRIN 81 MG TBEC One tab daily ASPIRIN 96439807018 Kadie L 02/06 [place] PERCOCET 5-325 MG One tab every OXYCODONE-ACETAMINO 66403371726 Kadie L TABS 6 hrs as 01/30 [place] needed ROSUVASTATIN CALCIUM 1.5 tabs ROSUVASTATIN 94941004127 Kadie L 5 MG TABS daily 02/03 CALCIUM [place] HYDROCHLOROTHIAZIDE One tab daily HYDROCHLOROTHIAZIDE 83562918514 Kadie L 50 MG TABS 08/17 [place] ALPRAZOLAM 1 MG TABS 1 tablet as ALPRAZOLAM 16760594098 Machelle D needed for 12/04 [place] PA-C anxiety ESCITALOPRAM OXALATE 1 tablet by ESCITALOPRAM 96295446470 Machelle D 20 MG TABS mouth daily 12/04 OXALATE [place] PA-C at bedtime SOTALOL HCL 120 MG 1 tablet by SOTALOL HCL 85935996541 Machelle D TABS mouth daily 12/04 [place] PA-C SOTALOL HCL 120 MG 1 tablet by SOTALOL HCL 77181760858 Kadie L TABS mouth daily 12/04 02/11 [place] Medications Administered No information available. Allergies, Adverse Reactions, Alerts Observed no known allergies at Results Date Name Value Unit Range Flag Description Office Visit: hypoxemia and dyspnea MEDS REVIEW Done Documentation of current medications (procedure) SMOK ADVICE yes Smoking cessation education (procedure) ORALTOBACUSE Never Tobacco smoking status NHIS SMOK STATUS Current every day smoker Tobacco use [facility] Plan of Care Type Date Detail Appointment 10:30 AM Jonathan Cummings, [address], [address], [place], [address] Appointment 02:00 PM Jonathan Cummings, [address], [address], [place], [address] Referral Surgery Referral Pending order Complete sleep [...] Procedures Code Procedure Name Date Entry Date CPT-22430 Inhaler Training Vital Signs Date Name Value [...]
--- OUTSIDE RECORDS SUMMARY | 2018-10-28 21:31 | XMS RPT_ITS | Clinical Summary ---
:1960 Author Organization [facility], [facility] Address [facility] [place] [address] Phone Care Team Providers Name Role Phone Marianela Amaro Unavailable Unavailable Conditions or Problems Problem Name Problem Onset Status Entry Provider Comment Standard Annotate Code Date Date Description Tobacco Abuse 05369611 Active Jonathan W Tobacco (SNOMED 03/13 03/[address]) syndrome Dyspnea/short 296038485 Active Jonathan W Dyspnea ness of (SNOMED 03/13 03/[address]) Hypoxemia 744546174 Active Jonathan W Hypoxemia (SNOMED 03/13 03/[address]) Joint pain 95375415 Active Machelle Joint pain (SNOMED 12/04 12/[address] [place] [address]) PA-C Insomnia, 781693290 Active Machelle Insomnia chronic (SNOMED 12/04 12/[address] [place] [address]) PA-C Overactive 976236429 Active Machelle Bladder muscle bladder (SNOMED 12/04 12/04 [place] dysfunction - CT) PA-C overactive Hiatal hernia 07246264 Active Machelle Hiatal hernia (SNOMED 12/04 12/[address] [place] [address]) PA-C GERD 637693106 Active Machelle Gastroesophageal (SNOMED 12/04 12/[address] [place] [address]) PA-C Hypertension 7278125 7967/0 Active Machelle Benign essential benign (SNOMED 12/04 12/[address] [place] hypertension essential CT) PA-C Depression / 830360831 Active Machelle Mixed anxiety and anxiety (SNOMED 12/04 12/[address] [place] [address]) PA-C disorder Medications Medication Instructions Start Stop Generic Name NDC Provider Date Date CLONAZEPAM 2 MG TABS 1 tablet by CLONAZEPAM [id number] Machelle mouth at 12/04 [place] bedtime PA-C CLONAZEPAM 2 MG TABS 1 tablet by 2016/ CLONAZEPAM 52433532484 Kadie L mouth at 12/04 02/11 [place] bedtime OXYBUTYNIN CHLORIDE 1 tablet by OXYBUTYNIN CHLORIDE 73074916408 Machelle ER 10 MG [id number] mouth daily 12/04 [place] PA-C OXYBUTYNIN CHLORIDE 1 tablet by 2016/ OXYBUTYNIN CHLORIDE 50950710988 Kadie L ER 10 MG [id number]-VRG mouth daily 12/04 02/11 [place] PANTOPRAZOLE SODIUM 2 tablets by PANTOPRAZOLE SODIUM 10936511729 Machelle 40 MG TBEC mouth daily 12/04 [place] PA-C PANTOPRAZOLE SODIUM 2 tablets by 2016/ PANTOPRAZOLE SODIUM 45859856388 Kadie L 40 MG TBEC mouth daily 12/04 02/11 [place] ULTRAM 50 MG TABS One tab every TRAMADOL HCL 02887325901 Kadie L 4-6 hrs as 10/02 [place] needed ULTRAM 50 MG TABS One tab every 2016/ TRAMADOL HCL 31607800808 Marianela M 4-6 hrs as 10/02 03/13 [place] needed POTASSIUM CHLORIDE 2 tablets by POTASSIUM CHLORIDE 78517783414 Machelle ER 20 MEQ CR-TABS mouth daily 12/04 [place] PA-C HYDROCHLOROTHIAZIDE 1 tablet by HYDROCHLOROTHIAZIDE 42092134661 Machelle 50 MG TABS mouth daily 12/04 [place] PA-C ALPRAZOLAM 1 MG TABS One tab three ALPRAZOLAM 13818913581 Kadie L times daily 12/16 [place] as needed ESCITALOPRAM OXALATE 1 tablet by ESCITALOPRAM OXALATE 06490453028 Kadie L 20 MG TABS mouth daily 05/01 [place] VALIUM 2 MG TABS One tab 30 DIAZEPAM 48603938460 Kadie L minutes prior 02/11 [place] to MRI MEDROL 4 MG TABS One tab 6 METHYLPREDNISOLONE 56215420350 Kadie L days 02/06 [place] TRIAMCINOLONE One TRIAMCINOLONE 76964882907 Kadie Sanchez ACETONIDE 0.025 % application 02/06 ACETONIDE [place] CREA four times daily ASPIRIN 81 MG TBEC One tab daily ASPIRIN 99668787948 Kadie L 02/06 [place] PERCOCET 5-325 MG One tab every OXYCODONE-ACETAMINOP 13147235443 Kadie L TABS 6 hrs as 01/30 JOSE ALBERTO [place] needed ROSUVASTATIN CALCIUM 1.5 tabs ROSUVASTATIN CALCIUM 70768050417 Kadie L 5 MG TABS daily 02/03 [place] HYDROCHLOROTHIAZIDE One tab daily HYDROCHLOROTHIAZIDE 31962032952 Kadie L 50 MG TABS 08/17 [place] ALPRAZOLAM 1 MG TABS 1 tablet as ALPRAZOLAM 04421599160 Machelle needed for 12/04 [place] anxiety PA-C ESCITALOPRAM OXALATE 1 tablet by ESCITALOPRAM OXALATE 42712790822 Machelle 20 MG TABS mouth daily 12/04 [place] at bedtime PA-C SOTALOL HCL 120 MG 1 tablet by SOTALOL HCL 26399722510 Machelle TABS mouth daily 12/04 [place] PA-C SOTALOL HCL 120 MG 1 tablet by SOTALOL HCL 74288022692 Kadie L TABS mouth daily 12/04 02/11 [place] Medications Administered No information available. Allergies, Adverse Reactions, Alerts Observed no known allergies at Results Date Name Value Unit Range Flag Description Office Visit: New patient/Hypoxemia MEDS REVIEW Done Documentation of current medications (procedure) SMOK ADVICE yes Smoking cessation education (procedure) ORALTOBACUSE Never Tobacco smoking status NHIS SMOK STATUS Current every day smoker Tobacco use [facility] Plan of Care Type Date Detail Appointment 10:30 AM Jonathan Cummings, [address], [address], [place], [address] Referral Surgery Referral Pending order Nocturnal Oximetry [...]
--- OUTSIDE RECORDS SUMMARY | 2018-10-28 21:31 | XMS RPT_ITS | Clinical Summary ---
:1960 Author Organization [facility], [facility] Address [facility] [place] [address] Phone Care Team Providers Name Role Phone Kadie Noguera LPN Unavailable Unavailable Conditions or Problems Problem Name Problem Onset Status Entry Provider Comment Standard Annotate Code Date Date Description COPD stage 1 617087180 Active Alejandrina Mild chronic mild (FEV1 (SNOMED 05/01 05/01 [place] obstructive 80-100%) CT) [employer] pulmonary disease Hypersomnia 40926864 Active Alejandrina Hypersomnia (SNOMED 05/01 05/[address]) [employer] Tobacco Abuse 72643612 Active Jonathan W Tobacco (SNOMED 03/13 03/[address]) syndrome Dyspnea/short 816290603 Active Jonathan W Dyspnea ness of (SNOMED 03/13 03/[address]) Hypoxemia 333812960 Active Jonathan W Hypoxemia (SNOMED 03/13 03/[address]) Joint pain 33733845 Active Machelle D Joint pain (SNOMED 12/04 12/[address] [place] PA-C CT) Insomnia, 637805355 Active Machelle D Insomnia chronic (SNOMED 12/04 12/[address] [place] [address]-C CT) Overactive 516765924 Active Machelle D Bladder muscle bladder (SNOMED 12/04 12/04 [place] PA-C dysfunction - CT) overactive Hiatal hernia 16643041 Active Machelle D Hiatal hernia (SNOMED 12/04 12/[address] [place] [address]-C [address]) GERD 452283852 Active Machelle D Gastroesophageal (SNOMED 12/04 12/04 [place] PA-C reflux disease CT) Hypertension 1328571 0938/0 Active Machelle Cortes Benign essential benign (SNOMED 12/04 12/04 [place] PA-C hypertension essential CT) Depression / 290131413 Active Machelle Cortes Mixed anxiety anxiety (SNOMED 12/04 12/04 [place] PA-C and depressive CT) disorder Medications Medication Instructions Start Stop Generic Name [facility] Provider Date Date BEVESPI AEROSPHERE 2 puffs twice GLYCOPYRROLATE-FORM 59644738205 Alejandrina 9-4.8 MCG/ACT AERO daily 05/01 OTEROL [place] [employer] CLONAZEPAM 2 MG TABS 1 tablet by CLONAZEPAM 99578662777 Machelle D mouth at 12/04 [facility] bedtime CLONAZEPAM 2 MG TABS 1 tablet by 2016/ CLONAZEPAM 24355340955 Kadie L mouth at 12/04 02/11 [place] bedtime OXYBUTYNIN CHLORIDE 1 tablet by OXYBUTYNIN CHLORIDE 07920906715 Machelle D ER 10 MG [id number] mouth daily 12/04 [facility] OXYBUTYNIN CHLORIDE 1 tablet by 2016/ OXYBUTYNIN CHLORIDE 03858691267 Kadie L ER 10 MG [id number] mouth daily 12/04 02/11 [place] PANTOPRAZOLE SODIUM 2 tablets by PANTOPRAZOLE SODIUM 11477880582 Machelle D 40 MG TBEC mouth daily 12/04 [facility] PANTOPRAZOLE SODIUM 2 tablets by 2016/ PANTOPRAZOLE SODIUM 64774447854 Kadie L 40 MG TBEC mouth daily 12/04 02/11 [place] ULTRAM 50 MG TABS One tab every TRAMADOL HCL 47421798624 Kadie L 4-6 hrs as 10/02 [place] needed ULTRAM 50 MG TABS One tab every 2016/ TRAMADOL HCL 86382001488 Marianela M 4-6 hrs as 10/02 03/13 [place] needed POTASSIUM CHLORIDE 2 tablets by POTASSIUM CHLORIDE 29324353509 Machelle D ER 20 MEQ CR-TABS mouth daily 12/04 [facility] HYDROCHLOROTHIAZIDE 1 tablet by HYDROCHLOROTHIAZIDE 94714586463 Machelle D 50 MG TABS mouth daily 12/04 [place] PA-C ALPRAZOLAM 1 MG TABS One tab three ALPRAZOLAM 62400197553 Kadie L times daily 12/16 [place] as needed ESCITALOPRAM OXALATE 1 tablet by ESCITALOPRAM 96213168587 Kadie L 20 MG TABS mouth daily 05/01 OXALATE [place] VALIUM 2 MG TABS One tab 30 DIAZEPAM 97838624923 Kadie L minutes prior 02/11 [place] to MRI MEDROL 4 MG TABS One tab 6 METHYLPREDNISOLONE 47622352826 Kadie L days 02/06 [place] TRIAMCINOLONE One TRIAMCINOLONE 49723566722 Kadie L ACETONIDE 0.025 % application 02/06 ACETONIDE [place] CREA four times daily ASPIRIN 81 MG TBEC One tab daily ASPIRIN 51253923446 Kadie L 02/06 [place] PERCOCET 5-325 MG One tab every OXYCODONE-ACETAMINO 85505271149 Kadie L TABS 6 hrs as 01/30 [place] needed ROSUVASTATIN CALCIUM 1.5 tabs ROSUVASTATIN 09212275120 Kadie L 5 MG TABS daily 02/03 CALCIUM [place] HYDROCHLOROTHIAZIDE One tab daily HYDROCHLOROTHIAZIDE 55308381795 Kadie L 50 MG TABS 08/17 [place] ALPRAZOLAM 1 MG TABS 1 tablet as ALPRAZOLAM 35038110806 Machelle D needed for 12/04 [place] PA-C anxiety ESCITALOPRAM OXALATE 1 tablet by ESCITALOPRAM 77389037291 Machelle D 20 MG TABS mouth daily 12/04 OXALATE [place] PA-C at bedtime SOTALOL HCL 120 MG 1 tablet by SOTALOL HCL 38287984230 Machelle D TABS mouth daily 12/04 [place] PA-C SOTALOL HCL 120 MG 1 tablet by SOTALOL HCL 22755242678 Kadie L TABS mouth daily 12/04 02/11 [place] Medications Administered No information available. Allergies, Adverse [...] Jonathan Cummings, [address], [address], [place], [address] Appointment 02:00 PM Jonathan Cummings, [address], [address], [place], [address] Referral Surgery Referral Pending order Complete sleep [...] Procedures Code Procedure Name Date Entry Date CPT-44715 Inhaler Training Vital Signs Date Name Value [...]
--- OUTSIDE RECORDS SUMMARY | 2018-10-28 21:31 | XMS RPT_ITS | Clinical Summary ---
:1960 Author Organization [facility], [facility] Address [address] [place] [address] Phone Care Team Providers Name Role Phone Alejandrina [place] CNP S Unavailable Conditions or Problems Problem Name Problem Onset Status Entry Provider Comment Standard Annotate Code Date Date Description COPD stage 1 282626644 Active Alejandrina Mild chronic mild (FEV1 (SNOMED 05/01 05/01 [place] obstructive 80-100%) CT) [employer] pulmonary disease Hypersomnia 12984660 Active Alejandrina Hypersomnia (SNOMED 05/01 05/[address]) [employer] Tobacco Abuse 71335665 Active Jonathan W Tobacco (SNOMED 03/13 03/[address]) syndrome Dyspnea/short 573908320 Active Jonathan W Dyspnea ness of (SNOMED 03/13 03/[address]) Hypoxemia 730522790 Active Jonathan W Hypoxemia (SNOMED 03/13 03/[address]) Joint pain 32280369 Active Machelle D Joint pain (SNOMED 12/04 12/04 [place] PA-C CT) Insomnia, 512264165 Active Machelle D Insomnia chronic (SNOMED 12/04 12/[address] [place] PA-C CT) Overactive 717095638 Active Machelle D Bladder muscle bladder (SNOMED 12/04 12/04 [place] PA-C dysfunction - CT) overactive Hiatal hernia 74978745 Active Machelle D Hiatal hernia (SNOMED 12/04 12/[address] [place] PA-C CT) GERD 682271656 Active Machelle D Gastroesophageal (SNOMED 12/04 12/04 [place] PA-C reflux disease CT) Hypertension 4788488 5713/0 Active Machelle Cortes Benign essential benign (SNOMED 12/04 12/04 [facility] hypertension essential CT) Depression / 238281100 Active Machelle Cortes Mixed anxiety anxiety (SNOMED 12/04 12/04 [facility] and depressive CT) disorder Medications Medication Instructions Start Stop Generic Name NDC Provider Date Date BEVESPI AEROSPHERE 2 puffs twice GLYCOPYRROLATE-FORM 21703685760 Alejandrina 9-4.8 MCG/ACT AERO daily 05/01 OTEROL S [place] [employer] CLONAZEPAM 2 MG TABS 1 tablet by CLONAZEPAM 22252993036 Machelle D mouth at 12/04 [facility] bedtime CLONAZEPAM 2 MG TABS 1 tablet by 2016/ CLONAZEPAM 99896221268 Kadie L mouth at 12/04 02/11 [place] bedtime OXYBUTYNIN CHLORIDE 1 tablet by OXYBUTYNIN CHLORIDE 29320742234 Machelle D ER 10 MG [id number] mouth daily 12/04 [facility] OXYBUTYNIN CHLORIDE 1 tablet by 2016/ OXYBUTYNIN CHLORIDE 70247797911 Kadie L ER 10 MG [id number]-RMB mouth daily 12/04 02/11 [place] PANTOPRAZOLE SODIUM 2 tablets by PANTOPRAZOLE SODIUM 33090088813 Machelle D 40 MG TBEC mouth daily 12/04 [facility] PANTOPRAZOLE SODIUM 2 tablets by 2016/ PANTOPRAZOLE SODIUM 29107382832 Kadie L 40 MG TBEC mouth daily 12/04 02/11 [place] ULTRAM 50 MG TABS One tab every TRAMADOL HCL 63747551171 Kadie L 4-6 hrs as 10/02 [place] needed ULTRAM 50 MG TABS One tab every 2017/ TRAMADOL HCL 12970440455 Marianela M 4-6 hrs as 10/02 03/13 [place] needed POTASSIUM CHLORIDE 2 tablets by POTASSIUM CHLORIDE 55479866520 Machelle D ER 20 MEQ CR-TABS mouth daily 12/04 [facility] HYDROCHLOROTHIAZIDE 1 tablet by HYDROCHLOROTHIAZIDE 76688129627 Machelle D 50 MG TABS mouth daily 12/04 [place] PA-C ALPRAZOLAM 1 MG TABS One tab three ALPRAZOLAM 91804091578 Kadie L times daily 12/16 [place] as needed ESCITALOPRAM OXALATE 1 tablet by ESCITALOPRAM 71468154838 Kadie L 20 MG TABS mouth daily 05/01 OXALATE [place] VALIUM 2 MG TABS One tab 30 DIAZEPAM 36631464188 Kadie L minutes prior 02/11 [place] to MRI MEDROL 4 MG TABS One tab 6 METHYLPREDNISOLONE 41751860935 Kadie L days 02/06 [place] TRIAMCINOLONE One TRIAMCINOLONE 25918943662 Kadie L ACETONIDE 0.025 % application 02/06 ACETONIDE [place] CREA four times daily ASPIRIN 81 MG TBEC One tab daily ASPIRIN 27317316435 Kadie L 02/06 PERCOCET 5-325 MG One tab every OXYCODONE-ACETAMINO 37358513624 Kadie L TABS 6 hrs as 01/30 [place] needed ROSUVASTATIN CALCIUM 1.5 tabs ROSUVASTATIN 59410121193 Kadie L 5 MG TABS daily 02/03 CALCIUM [place] HYDROCHLOROTHIAZIDE One tab daily HYDROCHLOROTHIAZIDE 75820937408 Kadie L 50 MG TABS 08/17 ALPRAZOLAM 1 MG TABS 1 tablet as ALPRAZOLAM 25437733117 Machelle D needed for 12/04 [place] PA-C anxiety ESCITALOPRAM OXALATE 1 tablet by ESCITALOPRAM 37785656338 Machelle D 20 MG TABS mouth daily 12/04 OXALATE [place] PA-C at bedtime SOTALOL HCL 120 MG 1 tablet by SOTALOL HCL 43165912962 Machelle D TABS mouth daily 12/04 [place] PA-C SOTALOL HCL 120 MG 1 tablet by SOTALOL HCL 60715557005 Kadie L TABS mouth daily 12/04 02/11 [place] Medications Administered No information available. Allergies, Adverse [...] Plan of Care Type Date Detail Appointment 02:00 PM Jonathan Cummings, [address], [address], [place], [address] Appointment 11:00 AM Jonathan Cummings, [address], [address], [place], [address] Referral Surgery Referral Pending order Complete sleep [...] Procedures Code Procedure Name Date Entry Date CPT-99543 Inhaler Training Vital Signs Date Name Value [...]
== END ==
PROVIDERS: Family Provider Internal Medicine; PCP Internal Medicine; Referring Provider Nurse Practitioner Acute Care; Visit Provider Nurse Practitioner Acute Care
DX: R06.02 Shortness of breath (principal)
CPT/HCPCS: 94618

== ENCOUNTER → 2018-09-10 15:54 | Outpatient (CLI) | payer BC, SELFPAY ==
[2018-08-06 14:08] VITALS: BMI 41.5
--- NOTE | 2018-09-10 15:57 | CT_ITS ---
STUDY: LOW DOSE CT LUNG CANCER SCREENING REASON FOR EXAM: Female, 58 years old. Nicotine dependence with history of smoking for 20 years, 1 pack per day RADIATION DOSAGE (If Supplied By Facility): CTDIvol = ( 4.02 ) mGy, DLP = ( 152.50 ) mGycm TECHNIQUE: No contrast was administered. Low dose technique was utilized (average mAS-38 and kVp 120). 1.25 mm axial source images with a slice interval of 1.25-mm were reconstructed in lung windows. 2.5 mm axial source images with a slice interval of 2.5-mm were reconstructed in lung windows. 5.0 mm axial source images with a slice interval of 5.0-mm were reconstructed in soft tissue windows. Nodule measured using lung windows on PACS and/or independent workstation with automated measurement of minimum and maximum diameter. Nodule measurement reported as average diameter rounded to the nearest whole number. Growth is defined as an increase ins size of greater than 1.5 mm. COMPARISON: None. NODULES: Total lung nodules (excluding granulomas): 0 Emphysema: Central lobular emphysema with mild subpleural emphysematous changes of the bilateral lung apices. Mild degree of subpleural reticulation/fibrosis identified along the periphery of the bilateral upper lobes. No discrete parenchymal noncalcified nodule or localized groundglass opacity. Endobronchial lesion: None Aorta: Nonaneurysmal Coronary arteries: Trace atherosclerosis Heart: Normal size Pulmonary artery: Unremarkable for unenhanced imaging Mediastinal nodes: Mild adenopathy of the middle mediastinum with Station 4 lymph nodes measuring up to 1.5 cm in short axis. Station 7 lymph node has a short axis of 1.2 cm. Station 6 lymph nodes measure up to 1.2 cm. There also appears to be mild bilateral hilar adenopathy measuring up to 1.6 cm (short axis) on the right side and 1 cm on the left side. Conspicuity of hilar adenopathy is diminished given lack of IV contrast (per protocol). Other chest and abdominal findings: Adrenal glands are not enlarged. CT/Low Dose CT Lung Screening IMPRESSION: 1. Lung-RADS (in reference to pulmonary nodules) category 1 - Continue annual screening with LDCT in 12 months. 2. Mild mediastinal and right more than left hilar adenopathy. No dominant jett mass is seen. May be reactive adenopathy, however, neoplasm such as lymphoma cannot be excluded and follow-up chest CT in 3 months with IV contrast is suggested. More immediate evaluation with PET scan or bronchoscopy could also be considered, depending on patient clinical information, exam and risk factors. Alternatively, prior studies documenting stability may negate additional workup/follow up. IMPORTANT NOTES FOR USE: ACR Lung-RADS Version 1.0 Assessment Categories Release Date: December 05, 2013 Category: Coded 0-4 bases on nodule(s) with highest degree of suspicion. Negative screen is defined as categories 1 and 2; a positive screen is defined as categories 3 and 4. Category 3 and 4A nodules that are unchanged on interval CT should be coded as category 2, and individuals returned to screening in 12 months. Category 4X: Category 3 or 4 nodules with additional imaging findings that increase the suspicion of lung cancer, such as spiculation, GGN that doubles in size in 1 year, enlarged lymph notes, etc. Category Modifiers: S (significant finding unrelated to lung cancer) and C (prior history of treated lung cancer) may be added to the 0-4 Lung-RADS Electronically Signed: Jewel Rivas MD at 7:10 EST , Service support ,
== END ==
PROVIDERS: Family Provider Internal Medicine; PCP Internal Medicine; Referring Provider Nurse Practitioner Acute Care; Visit Provider Nurse Practitioner Acute Care
DX: Z12.2 Encounter for screening for malignant neoplasm of respiratory organs (principal); Z87.891 Personal history of nicotine dependence
CPT/HCPCS: G0297

== ENCOUNTER → 2018-09-24 23:09 | Outpatient (CLI) | payer BC, SELFPAY ==
[2018-08-06 14:08] VITALS: BMI 41.5
[2018-09-22 09:34] VITALS: BMI 40.6
[2018-09-24] MEDS: Zolpidem Tartrate 5 MG Tablet PO (22:25)
== END ==
LOC: SL 23:09
PROVIDERS: Family Provider Internal Medicine; PCP Internal Medicine; Referring Provider Nurse Practitioner Acute Care; Visit Provider Nurse Practitioner Acute Care
DX: G47.33 Obstructive sleep apnea (adult) (pediatric) (principal)
CPT/HCPCS: 95810

== ENCOUNTER → 2018-10-22 12:06 | Outpatient (CLI) | payer BC, SELFPAY ==
[2018-10-05 06:40] VITALS: BMI 39.8
[2018-10-22 12:44] VITALS: PULSE 59; PULSE 63; PULSE 78; PULSE 80; PULSE 86; PULSE 87; PULSE 88; PULSE 90; O2SAT 91; O2SAT 92; O2SAT 93; O2SAT 94; O2SAT 97; O2SAT 98
--- NOTE | 2018-10-22 12:46 | CPS ---
Pt SpO2 85% on room air. Wears 4 lpm O2 at home. Placed patient on 2 lpm sitting, SpO2 92%. Increased to 4 lpm for walking. Pt maintained SpO2 greater than 90% with 4 lpm O2 during testing.
--- NOTE | 2018-10-23 08:43 | WT_ITS ---
PSN 6 Minute Walk Test - 6 Minute Walk Test 6 Minute Walk Test: 6 Minute Walk Test PSN:6-Minute Walk Test Start: 10/22/18 12:44 Freq: Status: Active Protocol: RESP.6MINW Document 10/22/18 12:44 [facility] (Rec: 10/22/18 12:48 [facility]EON [id number]) 6 Minute Walk Test Date Performed 10/22/18 Time Performed 12:30 Height 5 ft 4 in Weight: 230 lb Weight in Pounds 230.[address]: Jonathan Cummings Assistive device used: None Pre-test Oxygen Flow Rate (L/min) (L/min) 4 Oxygen Delivery Method Nasal Cannula Pulse Ox (%) 98 Pulse Rate (60-100 beats/min) 59 L Dyspnea Nickolas Scale (0-10) 0 Exertion Nickolas Scale (6-20) 6 1st minute Oxygen Flow Rate (L/min) (L/min) 4 Oxygen Delivery Method Nasal Cannula Pulse Ox (%) 92 Pulse Rate (60-100 beats/min) 78 2nd minute Oxygen Flow Rate (L/min) (L/min) 4 Oxygen Delivery Method Nasal Cannula Pulse Ox (%) 93 Pulse Rate (60-100 beats/min) 80 3rd minute Oxygen Flow Rate (L/min) (L/min) 4 Oxygen Delivery Method Nasal Cannula Pulse Ox (%) 94 Pulse Rate (60-100 beats/min) 86 4th minute Oxygen Flow Rate (L/min) (L/min) 4 Oxygen Delivery Method Nasal Cannula Pulse Ox (%) 92 Pulse Rate (60-100 beats/min) 87 5th minute Oxygen Flow Rate (L/min) (L/min) 4 Oxygen Delivery Method Nasal Cannula Pulse Ox (%) 91 Pulse Rate (60-100 beats/min) 88 6th minute Oxygen Flow Rate (L/min) (L/min) 4 Oxygen Delivery Method Nasal Cannula Pulse Ox (%) 91 Pulse Rate (60-100 beats/min) 90 Dyspnea Nickolas Scale (0-10) 3 Exertion Nickolas Scale (6-20) 14 Post-test Oxygen Flow Rate (L/min) (L/min) 4 Oxygen Delivery Method Nasal Cannula Pulse Ox (%) 97 Pulse Rate (60-100 beats/min) 63 Full Laps Walked 12 Partial Lap, Number of Tiles Walked 45 Total Distance Walked (ft) 753 10/22/18 12:46 Cardiopulmonary Services by Jamila Sheppard Pt SpO2 85% on room air. Wears 4 lpm O2 at home. Placed patient on 2 lpm sitting, SpO2 92%. Increased to 4 lpm for walking. Pt maintained SpO2 greater than 90% with 4 lpm O2 during testing. Initialized on 10/22/18 12:46 - END OF NOTE - Interpretation Interpretation: The patient ambulated 753 feet over the course of 6 minutes on supplemental oxygen without assistive devices. Pretesting oxygen saturation was noted to be 85% on room air. The patient was placed on her baseline 4 L/min flow rate with subsequent improvement in the oxygen saturation to 98%. With ambulation, the tiffanie oxygen saturation was 91%. This represents a significant exertional oxygen desaturation, even on 4 L/min. There was also evidence of impaired walk distance. - Recommendations Recommendations: 4 L/min of supplemental oxygen should be utilized, both at rest and with e xertion.
== END ==
PROVIDERS: Family Provider Internal Medicine; PCP Internal Medicine; Referring Provider Internal Medicine Critical Care Medicine; Visit Provider Internal Medicine Critical Care Medicine
DX: J96.11 Chronic respiratory failure with hypoxia (principal); J44.9 Chronic obstructive pulmonary disease, unspecified
CPT/HCPCS: 94618

== ENCOUNTER → 2018-10-29 12:53 | Outpatient (CLI) | payer BC, SELFPAY ==
[2018-08-06 14:08] VITALS: BMI 41.5
[2018-10-05 06:40] VITALS: BMI 39.8
--- NOTE | 2018-10-30 10:34 | PFTCOMP_ITS ---
COMPLETE PULMONARY FUNCTION TEST INTERPRETATION Brief HPI: Patient is a 58 year old female, currently under the care of myself, who presents to [facility] for complete pulmonary function tests secondary to diagnosis of COPD. Respiratory therapist reports good effort and reproducible results. Interpretation: Forced expiration spirometry shows a mild large airways obstructive ventilatory defect with an FEV1 of 78% predicted. There is no significant bronchodilator response by strict ATS criteria. Spirograms are of good quality and plateau slowly, indicating slowly emptying areas of the lungs. The respiratory flow volume loop shows decreased expiratory flow rates at all lung volumes consistent with airway obstruction. Lung volumes by body plethysmography show a normal total lung capacity at 5.34 L, 109% predicted. All other lung volumes are within normal limits. Diffusion capacity by carbon monoxide is decreased at 58% predicted. The airway resistance is elevated. Compared to previous pulmonary function tests from 03/31/2017, there has been a significant reduction in FEV 1 by 19%. Impression: Irreversible mild large airways obstructive ventilatory defect with reduction in diffusing capacity consistent with patient's diagnosis of COPD. There has been some worsening compared to previous testing.
== END ==
LOC: PSN 12:54
PROVIDERS: Family Provider Internal Medicine; PCP Internal Medicine; Referring Provider Nurse Practitioner Acute Care; Visit Provider Nurse Practitioner Acute Care
DX: J44.9 Chronic obstructive pulmonary disease, unspecified (principal); J96.11 Chronic respiratory failure with hypoxia
CPT/HCPCS: 94060; 94726; 94729

== ENCOUNTER → 2018-10-29 23:21 | Outpatient (CLI) | payer BC, SELFPAY ==
[2018-10-05 06:40] VITALS: BMI 39.8
== END ==
PROVIDERS: Family Provider Family Medicine; PCP Family Medicine; Referring Provider Nurse Practitioner Acute Care; Visit Provider Nurse Practitioner Acute Care
DX: G47.33 Obstructive sleep apnea (adult) (pediatric) (principal)
CPT/HCPCS: 95811

== ENCOUNTER → 2018-11-12 12:26 | Outpatient (CLI) | payer BC, SELFPAY ==
[2018-10-05 06:40] VITALS: BMI 39.8
== END ==
PROVIDERS: Family Provider Family Medicine; PCP Family Medicine; Referring Provider Nurse Practitioner Acute Care; Visit Provider Nurse Practitioner Acute Care
DX: Z46.89 Encounter for fitting and adjustment of other specified devices (principal)

== ENCOUNTER → 2019-03-07 13:06 | Outpatient (REF) | payer BC, SELFPAY ==
[2019-03-02 13:44] VITALS: BMI 34.8
== END ==
LOC: CVS 13:06
PROVIDERS: Family Provider Family Medicine; PCP Family Medicine; Referring Provider Internal Medicine Cardiovascular Disease; Visit Provider Internal Medicine Cardiovascular Disease
DX: I48.0 Paroxysmal atrial fibrillation (principal); R00.2 Palpitations
CPT/HCPCS: 93270; 93271

== ENCOUNTER → 2020-09-28 12:21 | Outpatient (CLI) | payer BC, SELFPAY ==
[2020-08-17 10:50] VITALS: BMI 35.0
[2020-09-28 12:50] VITALS: PULSE 65; PULSE 68; PULSE 74; PULSE 75; PULSE 82; PULSE 84; PULSE 86; PULSE 88; O2SAT 87; O2SAT 90; O2SAT 92; O2SAT 94
--- NOTE | 2020-09-28 12:54 | CPS ---
At 2 minutes pt was placed on 1 lpm. Pt remained on 1 lpm for remainder of walk. At the 5 minute walk pt rested till end of test.
--- NOTE | 2020-09-29 05:47 | PCM.PSN.6M ---
PSN 6 Minute Walk Test - 6 Minute Walk Test 6 Minute Walk Test: 6 Minute Walk Test PSN:6-Minute Walk Test Start: 09/28/20 12:50 Freq: Status: Active Protocol: RESP.6MINW Document 09/28/20 12:50 [facility] (Rec: 09/28/20 12:54 [facility] [id number]) 6 Minute Walk Test Date Performed 09/28/20 Time Performed 12:30 Height 5 ft 4 in Weight: 87.997 kg Weight in Pounds 194.[address]: Dr Cummings Assistive device used: None Pre-test Oxygen Delivery Method Room Air Pulse Ox (%) 94 Pulse Rate (60-100 beats/min) 65 Dyspnea Nickolas Scale (0-10) 2 Exertion Nickolas Scale (6-20) 6 1st minute Oxygen Delivery Method Room Air Pulse Ox (%) 90 Pulse Rate (60-100 beats/min) 82 2nd minute Oxygen Delivery Method Room Air Pulse Ox (%) 87 Pulse Rate (60-100 beats/min) 74 Dyspnea Nickolas Scale (0-10) 3 Exertion Nickolas Scale (6-20) 11 Reported Symptoms Increased Work of Breathing 3rd minute Oxygen Flow Rate (L/min) (L/min) 1 Oxygen Delivery Method Nasal Cannula Pulse Ox (%) 92 Pulse Rate (60-100 beats/min) 86 4th minute Oxygen Flow Rate (L/min) (L/min) 1 Oxygen Delivery Method Nasal Cannula Pulse Ox (%) 90 Pulse Rate (60-100 beats/min) 84 5th minute Oxygen Flow Rate (L/min) (L/min) 1 Oxygen Delivery Method Nasal Cannula Pulse Ox (%) 90 Pulse Rate (60-100 beats/min) 88 Dyspnea Nickolas Scale (0-10) 4 Number of Rests Taken 1 Reported Symptoms Increased Work of Breathing 6th minute Oxygen Flow Rate (L/min) (L/min) 1 Oxygen Delivery Method Nasal Cannula Pulse Ox (%) 90 Pulse Rate (60-100 beats/min) 75 Dyspnea Nickolas Scale (0-10) 3 Exertion Nickolas Scale (6-20) 11 Post-test Oxygen Flow Rate (L/min) (L/min) 1 Oxygen Delivery Method Nasal Cannula Pulse Ox (%) 94 Pulse Rate (60-100 beats/min) 68 Full Laps Walked 16 Partial Lap, Number of Tiles Walked 0 Total Distance Walked (ft) 944 - Interpretation Interpretation: Patient was noted to be 94% on room air at rest. The patient then ambulated for 2 minutes and developed shortness of breath with desaturation 87% was placed on 1 L nasal cannula oxygen. The patient was then able to ambulate for a full 6 minutes with saturations around 90%. In total, the patient traveled 944 feet over the course of 6 minutes with 1 break. These findings are consistent with a respiratory limitation exercise tolerance. - Recommendations Recommendations: The patient requires no supplemental oxygen at rest, but should be using 1 L nasal cannula with any exertion.
== END ==
PROVIDERS: PCP Family Medicine; Visit Provider Internal Medicine Critical Care Medicine
DX: J96.11 Chronic respiratory failure with hypoxia (principal); J44.9 Chronic obstructive pulmonary disease, unspecified; G47.33 Obstructive sleep apnea (adult) (pediatric); F17.210 Nicotine dependence, cigarettes, uncomplicated
CPT/HCPCS: 94618

== ENCOUNTER → 2021-01-16 08:00 | Outpatient (CLI) | payer BC, SELFPAY ==
[2020-08-17 10:50] VITALS: BMI 35.0
--- NOTE | 2021-01-16 10:01 | PFTCOMP_ITS ---
COMPLETE PULMONARY FUNCTION TEST INTERPRETATION Brief HPI: Patient is a 60 year old female, currently under the care of myself, who presents to [facility] for complete pulmonary function tests secondary to diagnosis of COPD. Respiratory therapist reports good effort and reproducible results. Interpretation: Forced expiration spirometry shows a mild large airways obstructive ventilatory defect with an FEV1 of 73% predicted. There is no significant bronchodilator response by strict ATS criteria. Spirograms are of good quality and plateau slowly, indicating slowly emptying areas of the lungs. The respiratory flow volume loop shows decreased expiratory flow rates at all lung volumes consistent with airway obstruction. Lung volumes by body plethysmography could not be completed by the patient secondary to claustrophobia. Diffusion capacity by carbon monoxide is decreased at 39% predicted. The airway resistance is not available for interpretation. Compared to previous pulmonary function tests from 10/29/2018, shows a significant reduction in DLCO by 37%. Impression: Irreversible mild large airways obstructive ventilatory defect with a disproportionate reduction in diffusing capacity and significant worsening compared to previous.
== END ==
PROVIDERS: PCP Family Medicine; Referring Provider Internal Medicine Critical Care Medicine; Visit Provider Internal Medicine Critical Care Medicine
DX: J96.11 Chronic respiratory failure with hypoxia (principal); J44.9 Chronic obstructive pulmonary disease, unspecified; G47.33 Obstructive sleep apnea (adult) (pediatric); F17.210 Nicotine dependence, cigarettes, uncomplicated
CPT/HCPCS: 94060; 94726; 94729

== ENCOUNTER → 2022-05-07 | Outpatient (CLI) | payer BC, SELFPAY ==
--- NOTE | 2022-05-08 12:28 | PFTCOMP ---
This 61-year-old woman was referred to the pulmonary function lab for diagnosis of COPD. She underwent complete pulmonary function testing with spirometry, lung volumes by plethysmography, and diffusing capacity. Spirometry pre and postbronchodilator showed moderate airway obstruction at baseline, which improved to mild airway obstruction postbronchodilator. There was a significant bronchodilator response, with a 21% improvement in FEV1 and a technically adequate study. Forced vital capacity postbronchodilator was normal. Lung volume studies by plethysmography were within normal limits except for a mildly reduced vital capacity of 78% predicted. Diffusing capacity showed moderately decreased diffusing capacity at baseline, which normalizes when adjusted for lung volumes. This is likely consistent with a baseline moderate airway obstruction. [id number]
== END | disposition home or self-care (01) ==
PROVIDERS: PCP Family Medicine; Referring Provider Nurse Practitioner Acute Care; Visit Provider Nurse Practitioner Acute Care
DX: J44.9 Chronic obstructive pulmonary disease, unspecified (principal)
CPT/HCPCS: 94060; 94726; 94729

== ENCOUNTER → 2023-04-02 | Outpatient (CLI) | payer BC, SELFPAY ==
[2023-04-02 13:18] VITALS: PULSE 68; PULSE 71; PULSE 73; PULSE 80; PULSE 83; PULSE 85; PULSE 89; O2SAT 85; O2SAT 86; O2SAT 89; O2SAT 90; O2SAT 92
--- NOTE | 2023-04-02 13:24 | CPS ---
PATIENT HAS HOME O2 THROUGH [facility]. PLACED ON RA PRIOR TO BEGINNING WALK TEST. REQUIRED 3LPM TO KEEP SPO2 ABOVE 88% DURING TESTING. SHE WALKED 430FT TOTAL. SHORT BREAKS TAKEN THROUGHOUT TESTING FOR INCREASED WOB AND LEG PAIN. PATIENT EXPRESSED INTEREST IN PULMONARY REHAB, INFORMATION PROVIDED AND F/U WITH PROVIDER ENCOURAGED.
--- NOTE | 2023-04-06 07:53 | PCM.PSN.6M ---
PSN 6 Minute Walk Test 6 Minute Walk Test 6 Minute Walk Test: 6 Minute Walk Test PSN:6-Minute Walk Test Start: 04/02/23 13:18 Freq: Status: Active Protocol: RESP.6MINW Document 04/02/23 13:18 [facility] (Rec: 04/02/23 13:24 [facility] [id number]) 6 Minute Walk Test Date Performed 04/02/23 Time Performed 13:00 Height 5 ft 4 in Weight: 250 lb Weight in Pounds 250.[address]: Jonathan Cummings FIO2 (% Oxygen) 3 Assistive device used: None Pre-test Oxygen Delivery Method Room Air Pulse Ox 92 Pulse Rate (60-100) 68 Dyspnea Nickolas Scale (0-10) 3 1st minute Oxygen Delivery Method Room Air Pulse Ox 85 Pulse Rate (60-100) 73 Dyspnea Nickolas Scale (0-10) 4 Number of Rests Taken 1 Reported Symptoms Increased Work of Breathing 2nd minute Oxygen Flow Rate (L/min) 2 Oxygen Delivery Method Nasal Cannula Pulse Ox 86 Pulse Rate (60-100) 83 Dyspnea Nickolas Scale (0-10) 5 Number of Rests Taken 1 Reported Symptoms Increased Work of Breathing 3rd minute Oxygen Flow Rate (L/min) 3 Oxygen Delivery Method Nasal Cannula Pulse Ox 92 Pulse Rate (60-100) 80 Dyspnea Nickolas Scale (0-10) 5 Number of Rests Taken 1 Reported Symptoms Increased Work of Breathing 4th minute Oxygen Flow Rate (L/min) 3 Oxygen Delivery Method Nasal Cannula Pulse Ox 92 Pulse Rate (60-100) 85 Dyspnea Nickolas Scale (0-10) 5 Number of Rests Taken 1 Reported Symptoms Increased Work of Breathing 5th minute Oxygen Flow Rate (L/min) 3 Oxygen Delivery Method Nasal Cannula Pulse Ox 89 Pulse Rate (60-100) 85 Dyspnea Nickolas Scale (0-10) 5 Number of Rests Taken 1 Reported Symptoms Increased Work of Breathing 6th minute Oxygen Flow Rate (L/min) 3 Oxygen Delivery Method Nasal Cannula Pulse Ox 90 Pulse Rate (60-100) 89 Dyspnea Nickolas Scale (0-10) 5 Number of Rests Taken 0 Reported Symptoms Increased Work of Breathing Post-test Oxygen Flow Rate (L/min) 3 Oxygen Delivery Method Nasal Cannula Pulse Ox 92 Pulse Rate (60-100) 71 Dyspnea Nickolas Scale (0-10) 3 Full Laps Walked 7 Partial Lap, Number of Tiles Walked 17 Total Distance Walked (ft) 430 04/02/23 13:24 Cardiopulmonary Services by Sherrie Smith PATIENT HAS HOME O2 THROUGH [facility]. PLACED ON RA PRIOR TO BEGINNING WALK TEST. REQUIRED 3LPM TO KEEP SPO2 ABOVE 88% DURING TESTING. SHE WALKED 430FT TOTAL. SHORT BREAKS TAKEN THROUGHOUT TESTING FOR INCREASED WOB AND LEG PAIN. PATIENT EXPRESSED INTEREST IN PULMONARY REHAB, INFORMATION PROVIDED AND F/U WITH PROVIDER ENCOURAGED. Initialized on 04/02/23 13:24 - END OF NOTE Interpretation Interpretation: The patient ambulated 430 feet over the course of 6 minutes beginning on room air without assistive devices. Pretesting oxygen saturation was noted to be 92% on room air. With ambulation, the patient desaturated on several occasions, requiring an escalation in supplemental oxygen to 3 L/min to maintain appropriate exertional oxygen saturations. Recommendations Recommendations: 3 L/min of supplemental oxygen is required with exertion.
== END | disposition home or self-care (01) ==
PROVIDERS: PCP Family Medicine; Referring Provider Internal Medicine Critical Care Medicine; Visit Provider Internal Medicine Critical Care Medicine
DX: J44.9 Chronic obstructive pulmonary disease, unspecified (principal)
CPT/HCPCS: 94618